=== PATIENT | female | born 1945 | race Caucasian/White ===

== ENCOUNTER → 2017-02-22 14:00 | Outpatient (CLI) | payer MEDICARE, SELFPAY ==
--- NOTE | 2017-02-22 14:00 | ASPS_PTH ---
PATIENT: ELENA GUILLORY LOC: [facility] U#:[id number] AGE/SX: 79/F ROOM: RE02/22/[address]: Dr. Chandler Meyer MD : 1945 BED: DIS: SPEC #: [id number] RECD: 02/23/17 10:05 STATUS: ALEXIS GRISELDA #: [id number] TABITHA: 02/22/17 14:[address]: Chandler Meyer DEPT: CYTOLOGY RECD BY: Brandyn Quinatna ENTERED: 02/23/17 12:40 SP TYPE: ASPIRATION OTHR DR: No Primary Care Phys Tissues: Thyroid gland, NOS Procedures: Pap Stain (control) Special Stain Group II Cytology Other HEADER OPERATION: Ultrasound-guided fine needle aspiration left thyroid PRE-OP DIAGNOSIS: Multinodular goiter E04.2 TISSUE SUBMITTED: Fine needle aspiration left thyroid (12 slides) DIAGNOSIS CYTOLOGY Left thyroid, ultrasound-guided FNA (smears): Consistent with benign follicular nodule. See cytology study and comment. 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 Correlation with clinical, radiologic findings and appropriate follow up are necessary. Please make reference to previous specimen ([id number]) isthmus, ultrasound-guided FNA with diagnosis of consistent with adenomatoid colloid nodule. CYTOLOGY STUDY Slides are reviewed. The specimen is adequate for evaluation. The specimen is cellular and consists of clusters of benign follicular cells without significant atypia, small amount of colloid, lymphocytes and rare macrophages. CYTOLOGY GROSS Received are 12 smears labeled with the patient's name and designated per the requisition as left thyroid FNA. Submitted for staining. / 02/23/17 TC:Renetta CPT: 58447
== END ==
PROVIDERS: Visit Provider Surgery
DX: E04.2 Nontoxic multinodular goiter (principal)
CPT/HCPCS: 88161; 88313

== ENCOUNTER → 2020-02-12 14:21 | Outpatient (CLI) | payer OTHER, SELFPAY ==
[2020-02-12 13:54] VITALS: BMI 20.7
[2020-02-12 16:02] LABS: AST(SGOT) 37 U/L (15-37); Alanine Aminotransfer ALT/SGPT 28 U/L (13-56); Albumin, Serum 4.3 g/dL (3.2-5.0); Alkaline Phosphatase 116 U/L (45-117); Anion Gap 8 (5-15); BUN 7 mg/dL (7-18); Calcium,Total 9.8 mg/dL (8.5-10.1); Chloride 103 mmol/L (98-107); Creatinine, Serum 0.58 mg/dL (0.55-1.02); EST Glomerular Filtration Rate 108 mL/min (>60); Est Glom Filt Rate - Afr Amer 131 mL/min (>60); Globulin 4.1 g/dL (2.2-4.2); Glucose 88 mg/dL (74-106); Potassium 3.6 mmol/L (3.5-5.1); Protein, Total 8.4 g/dL (6.4-8.2); Sodium Level 138 mmol/L (136-145)
== END ==
PROVIDERS: PCP Family Medicine; Referring Provider Family Medicine; Visit Provider Family Medicine
DX: L53.9 Erythematous condition, unspecified (principal)
CPT/HCPCS: 36415; 80053

== ENCOUNTER → 2020-08-18 10:04 | Outpatient (CLI) | payer MEDICARE, SELFPAY ==
[2020-08-18 09:11] VITALS: BMI 20.7
--- NOTE | 2020-08-18 10:22 | RAD_ITS ---
STUDY: X-RAY - SACRUM/COCCYX REASON FOR EXAM: Female, 74 years old. Fall. Pain. TECHNIQUE: 3 view(s) of the sacrum and coccyx were obtained. COMPARISON: None. FINDINGS: Generalized osteopenia. Mild arthrosis of the sacroiliac joints and symphysis pubis. Mild arthrosis of both hips medially, left slightly greater than right. The presacral soft tissue structures are unremarkable. RAD/Sacrum-Coccyx min 2 Views IMPRESSION: Osteopenia with osteoarthritic changes. No acute osseous abnormality. Electronically Signed: Rian Valerio MD at 14:02 EDT , Service support ,
== END ==
PROVIDERS: PCP Family Medicine; Referring Provider Family Medicine; Visit Provider Family Medicine
DX: M53.3 Sacrococcygeal disorders, not elsewhere classified (principal)
CPT/HCPCS: 72220

== ENCOUNTER → 2020-09-05 09:38 | Outpatient (CLI) | payer MEDICARE, SELFPAY ==
[2020-08-18 09:11] VITALS: BMI 20.7
--- NOTE | 2020-09-05 09:39 | CT_ITS ---
STUDY: CT BRAIN WITHOUT CONTRAST REASON FOR EXAM: Female, 75 years old. Fall in JUNE striking both sides of the head, pain on both sides RADIATION DOSAGE (If Supplied By Facility): CTDIvol = ( 44.99 ) mGy, DLP = ( 745.49 ) mGycm TECHNIQUE: Transaxial CT imaging of the brain was performed without administration of intravenous contrast material. Individualized dose optimization techniques were used for this CT. COMPARISON: No relevant priors. FINDINGS: Normal soft tissue structures. Normal calvarium. There is mild cerebral atrophy with widening of the extra-axial spaces and ventricular dilatation. Normal white matter tracts of the cerebral hemispheres. Normal basal ganglia and thalami. Normal brainstem. Normal cerebellum. There is no intracranial hemorrhage. There are no findings of an acute ischemic infarction. Normal visualized paranasal sinuses. CT/Brain/Head without Contrast IMPRESSION: Normal unenhanced CT scan of the brain. Electronically Signed: Abisai Urbina MD ([place]) at 17:58 EDT , Service support ,
== END ==
PROVIDERS: PCP Family Medicine; Referring Provider Family Medicine; Visit Provider Family Medicine
DX: G44.329 Chronic post-traumatic headache, not intractable (principal)
CPT/HCPCS: 70450

== ENCOUNTER → 2020-09-07 10:21 | Outpatient (CLI) | payer MEDICARE, SELFPAY ==
[2020-08-18 09:11] VITALS: BMI 20.7
== END ==
PROVIDERS: Nurse Practitioner Family; PCP Family Medicine; Visit Provider Family Medicine
DX: E03.9 Hypothyroidism, unspecified (principal)
CPT/HCPCS: 36415; 84443

== ENCOUNTER → 2020-09-23 11:47 | Outpatient (CLI) | payer MEDICARE, SELFPAY ==
[2020-09-23 11:49] LABS: Bacteria 0 SEEN /hpf (None Seen); Mucous, Urine 0 SEEN /hpf (<or=2+); Red Blood Cells-Urine 0 SEEN /hpf (0-5); White Blood Cells 0 SEEN /hpf (0-5)
[2020-09-23 15:15] LABS: Absolute Lymphocyte Count 3.17 X10^3/uL (0.83-4.51); Absolute Neutrophil Count 6.2 X10^3/uL (2.0-7.7); Eosinophil# 0.08 X10^3/uL; Eosinophils% 0.8 % (0-5); Lymphocyte # 3.17 X10^3/ul (0.83-4.51); Lymphocyte % 30.9 % (19-41); Mean Corp Hgb Conc 31.1 g/dL (32-36); Mean Corpuscular Hgb 29.4 pg (27.0-32.0); Mean Corpuscular Volume 94.5 fL (81-99); Mean Platelet Vol. 10.1 fl (6.2-12.0); Monocyte% 6.8 % (0-10); NRBC Flagged by Analyzer 0 % (0-5); Neutrophil # 6.19 X10^3/uL (2.7-7.7); Neutrophil % 60.2 % (47-70); Platelet Count 485 K/mm3 (150-450); RBC Distribution Width CV 13.7 % (11.6-14.6); RBC Distribution Width SD 47.6 fl (35.1-43.9); Red Blood Count 4.76 M/mm3 (4.2-5.4); White Blood Count 10.3 K/mm3 (4.4-11.0)
[2020-09-23 15:16] LABS: Color, Urine Yellow (Yellow); Glucose, Dipstick Normal (Normal); Ketone-Dipstick Negative (Negative); Leukocyte Esterase-Dipstick Negative /ul (Negative); Nitrite-Dipstick Negative (Negative); Occult Blood-Urine Negative /ul (Negative); Protein-Dipstick Negative (Negative); Specific Gravity, Urine 1.005 (1.002-1.030); Urine Bilirubin Dipstick Negative (Negative); Urine Clarity Sl. Cloudy (Clear); Urine Urobilinogen Normal (Normal)
[2020-09-23 15:26] LABS: Squamous Epithelial Cells - UA 0-5 SEEN /hpf (5-10)
[2020-09-23 15:27] LABS: ALB/GLOB Ratio 0.6 RATIO (0.9-2.4); AST(SGOT) 37 U/L (15-37); Alanine Aminotransfer ALT/SGPT 30 U/L (13-56); Albumin, Serum 3.6 g/dL (3.2-5.0); Alkaline Phosphatase 126 U/L (45-117); Anion Gap 7 (5-15); BUN 7 mg/dL (7-18); BUN/Creat Ratio 12.6 RATIO (10-20); Calcium,Total 9.7 mg/dL (8.5-10.1); Chloride 103 mmol/L (98-107); Creatinine, Serum 0.55 mg/dL (0.55-1.02); EST Glomerular Filtration Rate 114 mL/min (>60); Est Glom Filt Rate - Afr Amer 138 mL/min (>60); Globulin 5.7 g/dL (2.2-4.2); Glucose 85 mg/dL (74-106); Protein, Total 9.3 g/dL (6.4-8.2); Sodium Level 139 mmol/L (136-145)
== END ==
PROVIDERS: PCP Family Medicine; Visit Provider Family Medicine
DX: J41.1 Mucopurulent chronic bronchitis (principal); R63.4 Abnormal weight loss
CPT/HCPCS: 36415; 80053; 81001; 85025

== ENCOUNTER → 2020-10-09 12:46 | Outpatient (CLI) | payer MEDICARE, SELFPAY ==
--- NOTE | 2020-10-09 12:53 | CT_ITS ---
EXAM: CT CHEST WITH INTRAVENOUS CONTRAST : 1945 CLINICAL INDICATION: unexplained weight loss TECHNIQUE: Helically acquired images were obtained of the chest with intravenous contrast. This CT exam was performed using one or more of the following dose reduction techniques: automated exposure control, adjustment of the mA and/or kV according to patient size, and/or use of iterative reconstruction technique. This report was created using [employer] report generation technology. CONTRAST: IV 100mL Isovue-300 COMPARISON: None. FINDINGS: LUNGS AND PLEURAL SPACES: There is calcified nodule at the right lower lobe. There are diffuse emphysematous changes in both lungs. No pleural effusion or thickening. No pneumothorax. HEART: Unremarkable. Heart size is normal. No pericardial effusion. MEDIASTINUM: Unremarkable. No mediastinal or hilar adenopathy. Esophagus is unremarkable. No hiatal hernia. THYROID: Unremarkable. No thyroid lesions. BONES/JOINTS: Unremarkable. No suspicious lytic or blastic abnormality. VASCULATURE: Unremarkable. Thoracic aorta is non-dilated. No thoracic aortic dissection. No obvious central pulmonary embolism although this study was not performed with the pulmonary embolism protocol. CT/Chest WITH Contrast IMPRESSION: Pulmonary hyperinflation with emphysematous changes in both lungs. There is no acute pulmonary abnormality. Individualized dose optimization techniques were used for this CT. at 1802 Reported and signed by: Gulshan Porter MD Electronically Signed: Gulshan Porter MD at 18:01 EDT Tel , Service support ,
== END ==
PROVIDERS: PCP Family Medicine; Referring Provider Family Medicine; Visit Provider Family Medicine
DX: R63.4 Abnormal weight loss (principal)
CPT/HCPCS: 71260; Q9967

== ENCOUNTER → 2021-01-25 | Outpatient (CLI) | payer MEDICARE, SELFPAY | END | disposition home or self-care (01) | LOC: LABSPEC 10:45 | PROVIDERS: PCP Family Medicine; Visit Provider Physician Assistant | DX: Z11.52 Encounter for screening for COVID-19 (principal) | CPT/HCPCS: 87635; U0005; U0003 ==

== ENCOUNTER → 2021-11-29 | Outpatient (CLI) | payer MEDICARE, SELFPAY ==
[2021-11-29 15:26] LABS: Absolute Lymphocyte Count 3.05 X10^3/uL (0.83-4.51); Absolute Neutrophil Count 4.9 X10^3/uL (2.0-7.7); Basophil# 0.07 X10^3/uL; Basophil% 0.8 % (0-1); Eosinophils% 2.2 % (0-5); Hematocrit 47.7 % (37-47); Hemoglobin 15.4 g/dL (12.0-15.0); Lymphocyte # 3.05 X10^3/ul (0.83-4.51); Lymphocyte % 33.7 % (19-41); Mean Corp Hgb Conc 32.3 g/dL (32-36); Mean Corpuscular Hgb 28.8 pg (27.0-32.0); Mean Corpuscular Volume 89.2 fL (81-99); Mean Platelet Vol. 10.1 fl (6.2-12.0); Monocyte# 0.76 X10^3/uL; Monocyte% 8.4 % (0-10); NRBC Flagged by Analyzer 0 % (0-5); Neutrophil # 4.93 X10^3/uL (2.7-7.7); Neutrophil % 54.6 % (47-70); Platelet Count 288 K/mm3 (150-450); RBC Distribution Width SD 42.2 fl (35.1-43.9); Red Blood Count 5.35 M/mm3 (4.2-5.4)
[2021-11-29 15:41] LABS: AST(SGOT) 27 U/L (15-37); Alanine Aminotransfer ALT/SGPT 22 U/L (13-56); Albumin, Serum 3.9 g/dL (3.2-5.0); Alkaline Phosphatase 93 U/L (45-117); Anion Gap 6 (5-15); BUN 10 mg/dL (7-18); BUN/Creat Ratio 15.8 RATIO (10-20); Calcium,Total 9.4 mg/dL (8.5-10.1); Chloride 104 mmol/L (98-107); Creatinine, Serum 0.63 mg/dL (0.55-1.02); EST Glomerular Filtration Rate 98 mL/min (>60); Est Glom Filt Rate - Afr Amer 118 mL/min (>60); Globulin 3.8 g/dL (2.2-4.2); Glucose 148 mg/dL (74-106); Potassium 3.7 mmol/L (3.5-5.1); Protein, Total 7.7 g/dL (6.4-8.2); Sodium Level 140 mmol/L (136-145)
[2021-11-29 19:53] LABS: Thyroid Stim Hormone (TSH) 0.47 uIU/mL (0.358-3.74)
== END | disposition home or self-care (01) ==
LOC: BIMLAB 13:42
PROVIDERS: PCP Family Medicine; Referring Provider Physician Assistant; Visit Provider Physician Assistant
DX: R63.4 Abnormal weight loss (principal); R03.0 Elevated blood-pressure reading, without diagnosis of hypertension; R00.2 Palpitations
CPT/HCPCS: 36415; 80053; 84443; 85025

== ENCOUNTER → 2022-01-20 | Outpatient (CLI) | payer MEDICARE, SELFPAY ==
--- NOTE | 2022-01-20 09:04 | EKG12_ITS ---
Test Reason : PALPS Blood Pressure : / mmHG Vent. Rate : 090 BPM Atrial Rate : 090 BPM P-R Int : 142 ms QRS Dur : 074 ms QT Int : 384 ms P-R-T Axes : 077 051 066 degrees QTc Int : 469 ms Normal sinus rhythm Septal infarct , age undetermined Abnormal ECG Confirmed by AYLEEN KNOWLES, CINDY ([id number]), book editor FAUZIA COOL ([id number]) on 01/21/2022 10:34:48 AM Referred By: Carly Najera Confirmed By:SWETA ABBASI MD
== END | disposition home or self-care (01) ==
LOC: PSN 09:02
PROVIDERS: PCP Family Medicine; Referring Provider Physician Assistant; Visit Provider Physician Assistant
DX: R03.0 Elevated blood-pressure reading, without diagnosis of hypertension (principal); R00.2 Palpitations
CPT/HCPCS: 93005; 93225; 93226

== ENCOUNTER → 2022-10-13 | Outpatient (CLI) | payer MEDICARE, SELFPAY ==
--- NOTE | 2022-10-13 16:15 | RAD_ITS ---
INDICATION: ANTERIOR RIB PAIN EXAMINATION/TECHNIQUE: X-RAY - XR Ribs Unilateral W/ PA Chest Min 3 Views COMPARISON: None. FINDINGS: SOFT TISSUES: Unremarkable. BONES: No evidence of a fracture. VISUALIZED LUNGS: Emphysematous changes and hyperinflation of the lungs consistent with COPD. No pneumothorax. Right lower lobe calcified granuloma. VISUALIZED MEDIASTINUM: Unremarkable. RAD/Ribs Uni Min 3V w/PA Chest IMPRESSION: No evidence of a left rib abnormality. Electronically Signed: Luis A Kumar DO at 22:39 EDT ,
== END | disposition home or self-care (01) ==
LOC: RAD 16:10
PROVIDERS: PCP Family Medicine; Referring Provider Family Medicine; Visit Provider Family Medicine
DX: R07.81 Pleurodynia (principal)
CPT/HCPCS: 71101

== ENCOUNTER 2023-01-13 15:57 | Outpatient (CLI) | payer MEDICARE, SELFPAY ==
[2023-01-13 16:52] LABS: Absolute Lymphocyte Count 2.27 X10^3/uL (0.83-4.51); Absolute Neutrophil Count 4.7 X10^3/uL (2.0-7.7); Basophil# 0.08 X10^3/uL; Eosinophil# 0.08 X10^3/uL; Hematocrit 47.1 % (37-47); Hemoglobin 15.7 g/dL (12.0-15.0); Lymphocyte # 2.27 X10^3/ul (0.83-4.51); Lymphocyte % 28.7 % (19-41); Mean Corp Hgb Conc 33.3 g/dL (32-36); Mean Corpuscular Hgb 29.6 pg (27.0-32.0); Mean Corpuscular Volume 88.9 fL (81-99); Mean Platelet Vol. 9.4 fl (6.2-12.0); Monocyte% 10.1 % (0-10); NRBC Flagged by Analyzer 0 % (0-5); Neutrophil # 4.67 X10^3/uL (2.7-7.7); Neutrophil % 59.1 % (47-70); Platelet Count 282 K/mm3 (150-450); RBC Distribution Width CV 13.1 % (11.6-14.6); RBC Distribution Width SD 42.3 fl (35.1-43.9); White Blood Count 7.9 K/mm3 (4.4-11.0)
[2023-01-13 17:21] LABS: Vitamin D,25 Hydroxy 30.9 ng/mL
[2023-01-13 17:27] LABS: AST(SGOT) 27 U/L (15-37); Alanine Aminotransfer ALT/SGPT 18 U/L (13-56); Alkaline Phosphatase 89 U/L (45-117); Anion Gap 1 (5-15); BUN 9 mg/dL (7-18); BUN/Creat Ratio 16.8 RATIO (10-20); Calcium,Total 9.8 mg/dL (8.5-10.1); Chloride 106 mmol/L (98-107); Creatinine, Serum 0.54 mg/dL (0.55-1.02); EST Glomerular Filtration Rate 118 mL/min (>60); Est Glom Filt Rate - Afr Amer 142 mL/min (>60); Globulin 4.2 g/dL (2.2-4.2); Glucose 85 mg/dL (74-106); Potassium 3.4 mmol/L (3.5-5.1); Protein, Total 8.2 g/dL (6.4-8.2); Sodium Level 139 mmol/L (136-145); T4 Free Direct 1.36 ng/dL (0.76-1.46); Thyroid Stim Hormone (TSH) 0.98 uIU/mL (0.358-3.74)
== END 2023-01-13 23:59 | disposition home or self-care (01) ==
LOC: BIMLAB 15:58
PROVIDERS: PCP Family Medicine; Referring Provider Physician Assistant; Visit Provider Physician Assistant
DX: E03.9 Hypothyroidism, unspecified (principal); L30.9 Dermatitis, unspecified; E55.9 Vitamin D deficiency, unspecified
CPT/HCPCS: 36415; 80053; 82306; 84439; 84443; 85025

== ENCOUNTER → 2023-04-21 | Outpatient (CLI) | payer MEDICARE, SELFPAY ==
--- NOTE | 2023-04-21 | LES_PTH ---
PATHOLOGY RESULTS PATIENT: ELENA GUILLORY LOC: [facility] U#:[id number] AGE/SX: 77/F ROOM: RE04/21/[address]: Dr. Rohit Mcdonald MD : 1945 BED: DIS: 04/21/2023 SPEC #: [id number] RECD: 04/24/23 10:29 STATUS: ALEXIS REJona #: [id number] TABITHA: 04/21/23 00:[address]: Rohit Mcdonald DEPT: SURGICAL PATHOLOGY RECD BY: Deng Krueger ENTERED: 04/24/23 10:29 SP TYPE: Lesion OTHR DR: Dr. Jae Rice, DO Tissues: Skin of eyelid, NOS Procedures: Surgery Specimen Level IV HEADER OPERATION: Lesion removal of left upper lid PRE-OP DIAGNOSIS: Present multiple x years, slowly increase in size TISSUE SUBMITTED: Left upper lid lesion MICROSCOPIC DIAGNOSIS Left upper eye lid lesion, biopsy; Benign fibroepithelial polyp, mildly inflamed. AM/mr 04/25/2023 MICROSCOPIC DESCRIPTION Slides are reviewed. GROSS DESCRIPTION Received in fixative is one container labeled with the patient's name and designated Left upper lid. The specimen consists of a piece of rascon-brown skin measuring 0.5x 0.4x 0.1cm. Entire specimen submitted into one cassette. DARREN/ 04/24/2023 TC:5 CPT: 18748
--- OUTSIDE RECORDS SUMMARY | 2023-04-21 19:52 | XMS RPT_ITS | CCD ---
Author Name Unknown Address [id number] [place] [address] Organization [facility] Care Team Providers Care Clicking Machine Operator Name Role Phone Kelsi Hernandes Unavailable Craske, W. Don Unavailable Craske, W Douglas Unavailable Unavailable Craske, W Douglas Unavailable Unavailable Craske, W Douglas Unavailable Unavailable Craske, W Douglas Unavailable Unavailable Craske, W Douglas Unavailable Unavailable Craske, W Douglas Unavailable Unavailable Kelsi Hernandes Primary Care Provider Craske, W. Don Unavailable GAIL HANSON Attending Unavailabl e KELSI HERNANDES Primary Care Unavailable Kelsi Hernandes Primary Care Provider [phone] Craskdeyanira, W. Don Unavailable Kelsi Hernandes Unavailable Funmi Cleveland Unavailable Unavailable Sean Rice Unavailable Unavailable Meredith Dixon Unavailable Unavailable Funmi Wallace Unavailable Unavailable Unavailable Unavailable Unavailable Kindra Gill Unavailable Craske III, DO, W. Don Unavailable Craske III, DO, W. Don Unavailable Kindra Gill PA-C Primary Care Provider Newbill, Kindra Unavailable Mami Hung Unavailable Unavailable Paula Villalobos Unavailable Unavailable PRYKHODKO, RICHARD BOBOEYRONNIE Attending U albaroailcharisma PRYKHOSENAO, RICHARD ANDREWSH Referring U albaroailcharisma ANN-MARIESEVERO KINDRA ROBERTO Primary Care Unavailable NEWBILL, KINDRA ROBERTO Primary Care Unavailable NEWCOSTAL, KINDRA ROBERTO Referring Unavailable PRYKHODKO, RICHARD BOBOEYJOSEPHINEH Attending U albaroailable NEWBILL, KINDRA ROBERTO Primary Care Unavailable PRYKHODKO, RICHARD OLEKSEYOVICH Attending U albaroailable Delmy Rice DO Primary Care Provider DELMY RICE Primary Care Unavailable HUMBLE GALLEGOS Referring Unavailable HUMBLE GALLEGOS Attending Unavailable CHANTELL SINGLETON Referring Unavailable HUMBLE GALLEGOS Attending Unavailable DELMY RICE Primary Care Unavailable Allergies Allergy Classification Reported Allergen(s) Allergy Type Date of Onset Reaction(s) Facility (14 sources) Latex; Translations: [LATEX] Propensity to adverse reactions to drug [address] [facility] (8 sources) Sulfonamides (Antibiotic); Translations: [Unknown] Propensity to adverse reactions to drug 9 Other (See Comments) [facility] (4 sources) Sulfonamides (Antibiotic) Propensity to adverse reactions to drug 9 Other (See Comments), [facility] Medications Current Medications Medication Drug Class(es) Dates Sig (Normalized) Sig (Original) bacitracin 0.5 unt/mg topical ointment (2 sources) Start: 07-10-2021 End: 07-16-2021 bacitracin 500 units/g topical ointment ; Apply topically to affected area 3 times a day Quantity: 1 Refills: 0 Ordered: 10-Jul-2021 Mami Hung Start: 10-Jul-2021 End: 16-Jul-2021 Generic Substitution Allowed Comments: For external use only. Completed/Discontinued Medications Medication Drug Class(es) Dates Sig (Normalized) Sig (Original) amLODIPine 5 mg oral tablet (12 sources) Dihydropyridine Calcium Channel Nora Start: 04-26-2021 amLODIPine (NORVASC) 5 mg tablet Take 5 mg by mouth. 0 04/26/2021 Active Problems Active Problems Problem Classification Problem Date Documented Date Episodic/Chronic Abdominal pain (8 sources) Abdominal pain; Translations: [Abdominal pain, unspecified site] Episodic Anxiety disorders (10 sources) Mixed anxiety and depressive disorder; Translations: [Anxiety state, unspecified] Chronic Cardiac dysrhythmias (6 sources) Tachycardia; Translations: [Tachycardia, unspecified] Onset: 11-29-2021 01-18-2022 Episodic Cataract (13 sources) After-cataract with vision obscured following extraction of cataract; Translations: [Other secondary cataract, left eye] Onset: 05-19-2014 Chronic Diverticulosis and diverticulitis (8 sources) Diverticulitis of colon; Translations: [Diverticulitis of colon (without mention of hemorrhage)] Chronic Essential hypertension (9 sources) Benign essential hypertension; Translations: [Benign essential hypertension] Chronic Malaise and fatigue (2 sources) Asthenia; Translations: [Other malaise and fatigue] 08-02-2020 Episodic Nonspecific chest pain (13 sources) Chest pain; Translations: [Atypical chest pain] Onset: 03-01-2019 03-05-2019 Episodic Other eye disorders (2 sources) Vitreous degeneration; Translations: [Vitreous degeneration, unspecified eye] Onset: 05-19-2014 05-19-2014 Chronic Other eye disorders (2 sources) Vitreous opacities; Translations: [Other vitreous opacities, unspecified eye] Onset: 05-19-2014 05-19-2014 Chronic Other nutritional; endocrine; and metabolic disorders (12 sources) Body mass index less than 20; Translations: [Body mass index (BMI) 19.9 or less, adult] Episodic Other screening for suspected conditions (not mental disorders or infectious disease) (5 sources) Electrocardiogram abnormal; Translations: [Nonspecific abnormal electrocardiogram [ECG] [EKG]] Episodic Residual codes; unclassified (3 sources) Tobacco user; Translations: [Tobacco abuse disorder] Onset: 03-01-2019 03-01-2019 Chronic Residual codes; unclassified (12 sources) History finding; Translations: [Other specified conditions influencing health status] Episodic Skin and subcutaneous tissue infections (6 sources) Cellulitis; Translations: [Cellulitis and abscess of unspecified sites] 08-01-2020 Episodic Thyroid disorders (11 sources) Goiter; Translations: [Goiter, unspecified] Onset: 05-28-2010 Chronic Thyroid disorders (12 sources) Disorder of thyroid gland; Translations: [Unspecified disorder of thyroid] Episodic Unclassified (2 sources) JIGGER WHILE GARDENING 08-01-2020 Past or Other Problems Problem Classification Problem Date Documented Da te Episodic/Chronic Allergic reactions (9 sources) Contact hand eczema; Translations: [Contact dermatitis and other eczema, unspecified cause] Onset: 10-15-2008 07-10-2021 Episodic Results Test Name Value Interpretation Reference Range Facil ity Vital Signs Date Time Vital Sign Value Performing Clinician Facility 09-13-2021 11:47-0400 Body height 160.02 cm Funmi Arrieta Obercliftoner Work Phone: [facility] Work Phone: 09-13-2021 11:47-0400 Body mass index (BMI) [Ratio] 20.37 kg/m2 Funmi Arrieta Obercliftoner Work Phone: [facility] Work Phone: 09-13-2021 11:47-0400 Body surface area Derived from formula 1.53 m2 Funmi Meenakshi OberAdReadyer Work Phone: [facility] Work Phone: 09-13-2021 11:47-0400 Body weight 52.16 kg Funmi Arrieta Obercliftoner Work Phone: [facility] Work Phone: 07-13-2021 12:05-0400 Body height 160 cm Kindra Newcostal Other Phone: [facility] 07-13-2021 12:05-0400 Body temperature 97.52 [degF] Kindra Newbill Other Phone: [facility] 07-13-2021 12:05-0400 Diastolic blood pressure 82 mm[Hg] Kindra Newbill Other Phone: [facility] 07-13-2021 12:05-0400 Heart rate 86 /min Kindra Newbill Other Phone: [facility] 07-13-2021 12:05-0400 Respiratory rate 16 /min Kindra Newbill Other Phone: [facility] 07-13-2021 12:05-0400 SaO2% (BldA) [Mass fraction] 96 % Kindra Newbill Other Phone: [facility] 07-13-2021 12:05-0400 Systolic blood pressure 157 mm[Hg] Kindra Newbill Other Phone: [facility] 07-10-2021 21:35-0400 Body height 175.2 cm Kindra Newbill Other Phone: [facility] 07-10-2021 21:35-0400 Body temperature 98.6 [degF] Kindra Newbill Other Phone: [facility] 07-10-2021 21:35-0400 Body weight 49.1 kg Kindra Newbill Other Phone: [facility] 07-10-2021 21:35-0400 Diastolic blood pressure 80 mm[Hg] Kindra Newbill Other Phone: [facility] 07-10-2021 21:35-0400 Heart rate 83 /min Kindra Newbill Other Phone: [facility] 07-10-2021 21:35-0400 Respiratory rate 18 /min Kindra Newbill Other Phone: [facility] 07-10-2021 21:35-0400 SaO2% (BldA) [Mass fraction] 94 % Kindra Newbill Other Phone: [facility] 07-10-2021 21:35-0400 Systolic blood pressure 178 mm[Hg] Kindra Newbill Other Phone: [facility] 07-07-2021 13:14-0400 Body height 160 cm Richard Chinchilla MD Work Phone: [facility] 07-07-2021 13:14-0400 Body mass index (BMI) [Ratio] 20.37 kg/m2 Richard Chinchilla MD Work Phone: [facility] 07-07-2021 13:14-0400 Body weight 52.16 kg Richard Chinchilla MD Work Phone: [facility] 07-07-2021 13:14-0400 Diastolic blood pressure 90 mm[Hg] Richard Chinchilla MD Work Phone: [facility] 07-07-2021 13:14-0400 Heart rate 83 /min Richard Chinchilla MD Work Phone: [facility] 07-07-2021 13:14-0400 SaO2% (BldA) [Mass fraction] 96 % Richard Chinchilla MD Work Phone: [facility] 07-07-2021 13:14-0400 Systolic blood pressure 143 mm[Hg] Richard Chinchilla MD Work Phone: [facility] 05-19-2021 08:58-0400 Body height 160.02 cm Kindrabg Escalante Work Phone: [facility] Work Phone: 05-19-2021 08:58-0400 Body mass index (BMI) [Ratio] 20.27 kg/m2 Kindra M Eachbabycosta Work Phone: [facility] Work Phone: 05-19-2021 08:58-0400 Body surface area Derived from formula 1.53 m2 Kindrabg Escalante Work Phone: [facility] Work Phone: 05-19-2021 08:58-0400 Body weight 51.91 kg Kindra Gill Work Phone: [facility] Work Phone: 05-19-2021 08:58-0400 Diastolic blood pressure 73 mm[Hg] Kindra Gill Work Phone: [facility] Work Phone: 05-19-2021 08:58-0400 Heart rate 116 /min Kindra Gill Work Phone: [facility] Work Phone: 05-19-2021 08:58-0400 Systolic blood pressure 125 mm[Hg] Kindra Gill Work Phone: [facility] Work Phone: 05-06-2021 11:21-0400 Body height 160.02 cm Funmi L Oberhauser Work Phone: [facility] [address] Work Phone: 05-06-2021 11:21-0400 Body mass index (BMI) [Ratio] 19.84 kg/m2 Funmi L Oberhauser Work Phone: [facility] [address] Work Phone: 05-06-2021 11:21-0400 Body surface area Derived from formula 1.51 m2 Funmi L Oberhauser Work Phone: [facility] [address] Work Phone: 05-06-2021 11:21-0400 Body weight 50.8 kg Funmi L Oberhauser Work Phone: XE[facility] Work Phone: 05-06-2021 11:21-0400 Diastolic blood pressure 88 mm[Hg] Funmi L Oberhauser Work Phone: [facility] [address] Work Phone: 05-06-2021 11:21-0400 Heart rate 88 /min Funmi L Oberhauser Work Phone: [facility] [address] Work Phone: 05-06-2021 11:21-0400 SaO2% (BldA) [Mass fraction] 95 % Funmi L Oberhauser Work Phone: OI[facility] Work Phone: 05-06-2021 11:21-0400 Systolic blood pressure 127 mm[Hg] Funmi L Oberhauser Work Phone: WT[facility]of[facility] [address] Work Phone: 04-26-2021 12:31-0400 Body height 160.02 cm Funmi L Oberhauser Work Phone: [facility] Work Phone: 04-26-2021 12:31-0400 Body mass index (BMI) [Ratio] 20.03 kg/m2 Funmi L Oberhauser Work Phone: [facility] Work Phone: 04-26-2021 12:31-0400 Body surface area Derived from formula 1.52 m2 Funmi L Oberhauser Work Phone: [facility] Work Phone: 04-26-2021 12:31-0400 Body weight 51.3 kg Funmi L Oberhauser Work Phone: [facility] Work Phone: 04-26-2021 12:31-0400 Diastolic blood pressure 82 mm[Hg] Funmi L Oberhauser Work Phone: [facility] Work Phone: 04-26-2021 12:31-0400 Heart rate 78 /min Funmi L Oberhauser Work Phone: [facility] Work Phone: 04-26-2021 12:31-0400 SaO2% (BldA) [Mass fraction] 94 % Funmi Mccormickerhauser Work Phone: [facility] Work Phone: 04-26-2021 12:31-0400 Systolic blood pressure 167 mm[Hg] Funmi Arrieta Oberhauser Work Phone: [facility] Work Phone: 04-20-2021 15:51-0400 Body height 160.02 cm Funmi Mccormickerhauser Work Phone: [facility] Work Phone: 04-20-2021 15:51-0400 Body mass index (BMI) [Ratio] 19.86 kg/m2 Funmi Mccormickercliftoner Work Phone: [facility] Work Phone: 04-20-2021 15:51-0400 Body surface area Derived from formula 1.51 m2 Funmi Mccormickercliftoner Work Phone: [facility] Work Phone: 04-20-2021 15:51-0400 Body temperature 97 [degF] Funmi Mccormickercliftoner Work Phone: [facility] Work Phone: 04-20-2021 15:51-0400 Body weight 50.85 kg Funmi L Oberhauser Work Phone: [facility] Work Phone: 04-20-2021 15:51-0400 Diastolic blood pressure 75 mm[Hg] Funmi Meenakshi Oberhauser Work Phone: [facility] Work Phone: 04-20-2021 15:51-0400 Heart rate 88 /min Funmi L Oberhauser Work Phone: [facility] Work Phone: 04-20-2021 15:51-0400 Systolic blood pressure 151 mm[Hg] Funmi L Oberhauser Work Phone: [facility] Work Phone: 03-22-2021 08:53-0500 Body height 160.02 cm Funmi L Oberhauser Work Phone: [facility] Work Phone: 03-22-2021 08:53-0500 Body mass index (BMI) [Ratio] 19.49 kg/m2 Funmi L Oberhauser Work Phone: [facility] Work Phone: 03-22-2021 08:53-0500 Body surface area Derived from formula 1.5 m2 Funmi L Oberhauser Work Phone: [facility] Work Phone: 03-22-2021 08:53-0500 Body temperature 96.9 [degF] Funmi L Oberhauser Work Phone: [facility] Work Phone: 03-22-2021 08:53-0500 Body weight 49.9 kg Funmi L Oberhauser Work Phone: [facility] Work Phone: 03-22-2021 08:53-0500 Diastolic blood pressure 85 mm[Hg] Funmi L Oberhauser Work Phone: [facility] Work Phone: 03-22-2021 08:53-0500 Heart rate 102 /min Funmi L Oberhauser Work Phone: [facility] Work Phone: 03-22-2021 08:53-0500 Systolic blood pressure 134 mm[Hg] Funmi Wallace Work Phone: [facility] Work Phone: 08-02-2020 17:00-0400 Diastolic blood pressure 77 mm[Hg] [facility] 08-02-2020 17:00-0400 Heart rate 74 /min [facility] 08-02-2020 17:00-0400 Respiratory rate 16 /min [facility] 08-02-2020 17:00-0400 SaO2% (BldA) [Mass fraction] 95 % [facility] 08-02-2020 17:00-0400 Systolic blood pressure 136 mm[Hg] [facility] 08-02-2020 13:19-0400 Body height 160 cm [facility] 08-02-2020 13:19-0400 Body temperature 99.68 [degF] [facility] 08-02-2020 13:19-0400 Body weight 50.9 kg [facility] 08-01-2020 14:33-0400 Body height 160 cm Kelsi Hernandes Other Phone: [facility] 08-01-2020 14:33-0400 Body temperature 98.24 [degF] Kelsi Hernandes Other Phone: [facility] 08-01-2020 14:33-0400 Diastolic blood pressure 82 mm[Hg] Kelsi Hernandes Other Phone: [facility] 08-01-2020 14:33-0400 Heart rate 79 /min Kelsi Hernandes Other Phone: [facility] 08-01-2020 14:33-0400 Respiratory rate 16 /min Kelsi Hernandes Other Phone: [facility] 08-01-2020 14:33-0400 SaO2% (BldA) [Mass fraction] 97 % Kelsi Hernandes Other Phone: [facility] 08-01-2020 14:33-0400 Systolic blood pressure 148 mm[Hg] Kelsi Hernandes Other Phone: [facility] 03-05-2019 11:02-0500 BMI (Body Mass Index) 21.43 kg/m2 [facility] 03-05-2019 11:02-0500 Body weight 54.88 kg [facility] 03-05-2019 11:02-0500 BP Diastolic 79 mm[Hg] [facility] 03-05-2019 11:02-0500 BP Systolic 130 mm[Hg] [facility] 03-05-2019 11:02-0500 Height 160 cm [facility] 03-05-2019 11:02-0500 Pulse (Heart Rate) 80 /min [facility] 03-05-2019 11:02-0500 Pulse Oximetry 97 % [facility] 05-29-2017 14:26-0400 BP Diastolic 87 mm[Hg] [facility] 05-29-2017 14:26-0400 BP Systolic 145 mm[Hg] [facility] 05-29-2017 14:26-0400 Pulse (Heart Rate) 83 /min [facility] Encounters Encounter Date Encounter Type Care Provider Facility Start: 02-11-2022 End: 02-11-2022 ambulatory DELMY [facility] Facility:[facility] Start: 02-11-2022 End: 02-11-2022 Patient encounter procedure Humble Gallegos MD Work Phone: Ophthalmology Procedures Date Procedure Procedure Detail Performing Clinician Start: 02-11-2022 Post-cataract laser surgery Humble mcintosh MD Work Phone: Start: 01-18-2022 Post-cataract laser surgery Humble mcintosh MD Work Phone: Start: 01-18-2022 Computerized ophthalmic imaging retina Humble Gallegos MD Work Phone: Start: 05-12-2021 Echocardiography Funmi Wallace Work Phone: Start: 08-02-2020 End: 08-02-2020 EKG impression Mami Hung Start: 03-05-2019 12 lead ECG Gail Hanson Work Phone: Start: 03-22-2017 H/O: surgery History of prior ablation treatment Bonnie Rosa MA Appendectomy Funmi Meenakshi Oberhau ser Work Phone: Hysterectomy Funmi Arrieta Oberhau ser Work Phone: Plan of Treatment Date Care Activity Detail Author Start: 02-06-2022 ADVANCE DIRECTIVE DISCUSSION ADVANCE DIRECTIVE DISCUSSION [facility] Start: 02-06-2022 DEPRESSION ASSESSMENT DEPRESSION ASSESSMENT [facility] Start: 10-07-[address] [facility] Start: 09-20-2021 FUV, Provider: Funmi Wallace, Status: Pen, Time: 1:00 PM FUV, Provider: Funmi Wallace, Status: Pen, Time: 1:00 PM [facility] Work Phone: Start: 07-16-2021 End: 07-16-2021 Patient encounter procedure 07/16/2021 Office Visit Otolaryngology Richard Chinchilla MD [address] [place] [address] [facility] Start: 07-09-2021 End: 07-09-2021 Documentation procedure 07/09/2021 Scanned Document Otolaryngology Richard Chinchilla MD [address] [place] [address] [facility] Start: 07-09-2021 End: 07-09-2021 Patient encounter procedure 07/09/[address] [facility] Start: 05-18-2021 FUV, Provider: Kindra Gill, Status: Pen, Time: 10:30 AM FUV, Provider: Kindra Gill, Status: Pen, Time: 10:30 AM [facility] Work Phone: Start: 05-12-2021 ECHO, Provider: TODD BROOKS ECHO 2,SMCECHO2, Status: Pen, Time: 9:00 AM ECHO, Provider: TODD HHVI ECHO 2,SMCECHO2, Status: Pen, Time: 9:00 AM [facility] Work Phone: Start: 02-06-2021 ADVANCE DIRECTIVE DISCUSSION ADVANCE DIRECTIVE DISCUSSION [facility] Start: 02-06-2021 DEPRESSION ASSESSMENT DEPRESSION ASSESSMENT [facility] Start: 10-08-2019 Influenza vaccination given Sequential Influenza Vaccine (#1) [facility] Start: 04-16-2019 End: 04-16-2019 Office Visit 04/16/2019 Office Visit Cardiology Gail Hanson MD [address] [place] [address] [phone] [facility] Start: 03-18-2019 End: 03-18-2019 Appointment 03/18/2019 Appointment Cardiology Gail Hanson MD [address] [place] [address] [phone] [facility] Start: 03-18-2019 End: 03-18-2019 Appointment 03/18/2019 Appointment Cardiology Gail Hanson MD [address] [place] [address] [phone] [facility] Start: 10-07-2018 Influenza vaccination given SEQUENTIAL INFLUENZA VACCINE (#1) [facility] Start: 05-29-2017 Ambulatory 05/29/2017 Follow-Up Cardiology Fior Correa PA-C [address] [place] [address] [phone] [facility] Start: 10-07-2016 Influenza vaccination SEQUENTIAL INFLUENZA VACCINE (#1) [facility] Start: 08-27-2011 BONE DENSITY BONE DENSITY [facility] Start: 08-27-2011 Fall risk assessment Falls Risk Assessment [facility] Start: 08-27-2011 Pneumococcal vaccination PNEUMOCOCCAL VACCINE AGE 65+ (1 of 2 - PCV13) [facility] Start: 08-27-2011 PNEUMOCOCCAL: 65+ (1 - PCV) PNEUMOCOCCAL: 65+ (1 - PCV) [facility] Start: 2006 Zoster vacc, sc ZOSTER VACCINE [facility] Start: 1996 Administration of herpes zoster vaccine Zoster Vaccines (1 of 2) [facility] Start: 1996 Screening for malignant neoplasm of colon [facility] Start: 1996 SHINGRIX VACCINE (1 of 2) SHINGRIX VACCINE (1 of 2) [facility] Start: 08-27-1991 COLOGUARD (FIT-DNA) COLOGUARD (FIT-DNA) [facility] Start: 08-27-1991 Colonoscopy COLONOSCOPY [facility] Start: 08-27-1991 COLORECTAL CANCER SCREENING COLORECTAL CANCER SCREENING [facility] Start: 08-27-[address] COLONOGRAPHY [facility] Start: 08-27-1991 DIABETES SCREEN DIABETES SCREEN [facility] Start: 08-27-1991 FECAL OCCULT BLOOD FECAL OCCULT BLOOD [facility] Start: 08-27-1991 LIPID SCREEN LIPID SCREEN [facility] Start: 08-27-1991 SIGMOIDOSCOPY SIGMOIDOSCOPY [facility] Start: 1986 Screening for malignant neoplasm of breast Mammogram [facility] Start: 1965 Urine microalbumin profile DTAP,TDAP,TD (1 - Tdap) [facility] Start: 1964 Hepatitis C antibody, confirmatory test Hepatitis C Screening [facility] Start: 1964 Hepatitis C screening Hepatitis C Screening [facility] Start: 1964 HEPATITIS C SCREENING HEPATITIS C SCREENING [facility] Start: 1962 COVID-19 Vaccine (1 of 2) COVID-19 Vaccine (1 of 2) [facility] Start: 1958 Adolescent depression screening assessment Depression Screening (PHQ9) [facility] Start: 1958 Depression screening using PHQ-9 (Patient Health Questionnaire 9) score Depression Screening (PHQ-2/9) [facility] Start: 1952 Pneumococcal Vaccine: Age 65+ (1 - PCV) Pneumococcal Vaccine: Age 65+ (1 - PCV) [facility] Start: 08-27-1951 COVID-19 Vaccine (#1) COVID-19 Vaccine (#1) [facility] Start: 08-27-1951 COVID-19 Vaccine (1) COVID-19 Vaccine (1) [facility] Start: 1949 History and physical examination, annual for health maintenance Wellness Visit [facility] Start: 02-26-1947 COVID-19 VACCINE (#1) COVID-19 VACCINE (#1) [facility] Start: 1946 Fall risk assessment Falls Risk Assessment [facility] Start: 1946 Hepatitis C antibody, confirmatory test HEPATITIS C SCREENING [facility] Start: 1946 Screening for malignant neoplasm of colon Colorectal Cancer Screening: Colonoscopy [facility] Start: 1946 Screening mammography Mammogram [facility] Start: 1946 HEPATITIS C SCREENING HEPATITIS C SCREENING [facility] Start: 1946 Screening colonoscopy COLONOSCOPY [facility] Start: 1946 End: 1946 Screening for osteoporosis DEXA SCAN [facility] Start: 1946 End: [address] [facility] End: 07-07-2022 Fine needle biopsy of thyroid US Thyroid Biopsy With FNA Imaging Routine Thyroid nodule 1 Occurrences starting 07/07/2021 until 07/07/[address] [facility] Work Phone: Payers Date Payer Category Payer Medicare [id number] 2019 Medicare MMO MANAGED MEDI CARE MMO MANAGED MEDICARE O xxxxxxx 2019-Present [id number] 2019 Medicare [id number] 2019 Medicare MMO MANAGED MEDI CARE MMO MANAGED MEDICARE O [id number] 2019-Present [id number] 2019 Medicare [id number] 2017 Private Health Insurance [id number] 2011 Unknown 1946 Unknown [id number] 1946 Unknown [id number] 1946 Unknown [id number] 1946 Unknown [id number] Medicare xxxxxxxxx [id number] Social History Date Type Detail Facility Start: 04-13-2017 End: 05-29-2017 Tobacco smoking status MOIS Current some day smoker [facility] Start: 1945 Sex Assigned At Not on file [facility] Start: 03-05-2019 End: 07-07-2021 Tobacco smoking status MOIS Current every day smoker [facility] Start: 03-05-2019 End: 01-18-2022 Cigarettes smoked current (pack per day) - Reported [facility] Start: 03-05-2019 End: 02-11-2022 Alcohol intake Current non-drinker of alcohol (finding) [facility] Start: 03-05-2019 End: 01-18-2022 Tobacco use and exposure Never used [facility] Tobacco smoking consumption unknown [facility] End: 11-06-2008 History of tobacco use Cigarette Smoker [facility] Start: 06-27-2021 End: 07-07-2021 Exposure to SARS-CoV-2 (event) Not sure [facility] Start: 01-18-2022 [facility] End: 11-06-2008 History of tobacco use Current smoker [facility] Start: 01-18-2022 Tobacco Comment patient report s smoking for 35 years .5ppd - has stopped twice, most recently 01/2008; resumed smoking 08/13 [facility] Clinical Notes 03-15-2021 to 02-11-2022 Patient Maria De Jesus Gallegos MD - 02/11/2022 3:12 PM ESTPatient Maria De Jesus Gallegos MD - 01/18/2022 1:57 PM Arpita Chinchilla MD - 07/07/2021 2:06 PM EDT Note Date & Type Note Facility 02-11-2022 Note HNO ID: [id number] Author: Humble Gallegos MD Service: ? Author Type: Physician Type: Progress Notes Filed: 02/11/2022 4:06 PM Note Text: ASSESSMENT/PLAN: 1. 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 Pseudophakia of both eyes - ICD9: V43.1, ICD10: Z96.1 - YAG CAPSULOTOMY OD (RIGHT EYE) S/p Yag laser left eye 01/18/2022 Begin: Acular 1 drop in the right eye four times daily for one week then discontinue Patient to see Dr. Fox in [place] for refraction and new glasses following YAG Laser both eyes. Humble Gallegos MD I have confirmed and edited as necessary the relevant ophthalmic history, review of systems, surgical history, and ophthalmological examination findings as obtained by the ophthalmic technical staff. I have seen and examined Jocelyne Chapman. I have discussed the examination findings, diagnosis, and treatment options with Jocelyne Chapman and/or her family. I have also reviewed and agree with the assessment and plan as stated above and agree with all its relevant components. I gave the patient the opportunity to ask questions about the findings, diagnosis, and treatment options. [facility] 02-11-2022 Instructions Humble Gallegos MD - 02/11/2022 3:14 PM EST YAG LASER POSTERIOR CAPSULOTOMY WHY IS MY VISION WORSE NOW THAN IT WAS RIGHT AFTER MY CATARACT SURGERY? During cataract surgery, Dr Gallegos removes the cloudy lens from the eye. At that time he also removes the front part of a membranous capsule that holds your natural lens. The back part of this capsule (posterior capsule) is left intact and hold the new lens implant in place. In some people this thin posterior capsule gets cloudy and causes a decrease in vision some weeks, months or even years after cataract surgery. CAN MY DOCTOR HELP MY VISION? In order to improve vision, a very small opening must be made in the cloudy posterior capsule. This opening now allows a clearer channel for light to focus on your retina. Your vision will improve to the degree that the cloudy capsule was interfering with clear vision. You may or may not see an immediate improvement in your vision, but it should continue to improve in the days and weeks following the laser procedure. HOW DOES THE LASER WORK? Lasers are the instruments that emit a narrow, finely focused beam of light energy. Some lasers work by heating and coagulating tissue; however, the YAG laser does not heat, but rather cuts tissue inside the eye. Ophthalmologists have used these lasers since the early 1969's, and they have been proven extremely safe and effective. SHOULD I HAVE ANY SPECIAL TESTING OR TAKE ANY PRECAUTIONS PRIOR TO THE LASER TREATMENT? If you are taking eye medication on a regular basis, you should continue as normal unless Dr. Gallegos specifically tells you others. The Yag laser posterior capsulotomy is accomplished quickly, with little or no discomfort, no special testing, no hospitalization, no fasting, no shots, no stitches, and no activity restrictions. HOW LONG WILL THE LASER TREATMENT TAKE? Although the laser treatment itself only takes about 15 minutes, you should plan to be in the office for 1-2 hours. Dilating drops will be administered 1 hour prior to the treatment. An additional benefit of these drops is to reduce the chances of a spike in intraocular eye pressure (pressure inside the eye) after the laser procedure. During the time before your procedure, Dr Gallegos will check your pre-laser eye pressure and answer any questions you may have concerning the procedure. After the treatment is completed, other eye drops may be administered and you pressure will be checked again to be sure all is well before you leave. WHAT HAPPENS DURING THE LASER TREATMENT? You will be asked to sit in front of an instrument that looks similar to the slit lamp in the exam room. Dr. Gallegos will place a special contact lens over your eye to help see inside your eye so he can aim accurately. This lens also help keep you eye open and prevents small eye movements. You will see flashes of light, like a camera flash, and hear the clicking sound of the laser. DOES THE LASER HURT? Dr Gallegos or his financial services assistant will administer anesthetic drops into your eye. There is minimal, if any, discomfort. Most people feel no pain at all, but in rare cases, some patient reported a pinching-like sensation in the eye. WHAT CAN I EXPECT WHEN THE LASER PROCEDURE IS FINISHED? You will not need to patch you eye post YAG laser. You will be dilated so you will need to bring someone to drive you home. It is normal to have some mild inflammation in your eye which can laser a matter of days. Therefore, your eye might feel scratchy or like there is something in it. It may be slightly red and light sensitive. Occasionally, your eye may ache. If needed, you may use an over the counter pain reliever until the pain subsides. Please let your doctor know if you cannot tolerate these types of medications. FOLLOW UP AFTER THE LASER? After your Yag laser procedure, you will be asked to return in a few months to check your vision, eye pressure, and the karan of your retina. After the laser treatment, you may experience small floating objects in your field of vision. These are a common occurrence after a Yag laser posterior capsulotomy and should subside within a few months. Of course, should you experience any decrease in vision or pain in or around the eyes, please call our office immediately. documented in this encounter [facility] 02-11-2022 History of Present illness Narrative ASSESSMENT/PLAN: 1. 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 Pseudophakia of both eyes - ICD9: V43.1, ICD10: Z96.1 - YAG CAPSULOTOMY OD (RIGHT EYE) S/p Yag laser left eye 01/18/2022 Begin: Acular 1 drop in the right eye four times daily for one week then discontinue Patient to see Dr. Fox in [place] for refraction and new glasses following YAG Laser both eyes. Humble Gallegos MD I have confirmed and edited as necessary the relevant ophthalmic history, review of systems, surgical history, and ophthalmological examination findings as obtained by the ophthalmic technical staff. I have seen and examined Jocelyneshraddha Chapman. I have discussed the examination findings, diagnosis, and treatment options with Jocelyne Chapman and/or her family. I have also reviewed and agree with the assessment and plan as stated above and agree with all its relevant components. I gave the patient the opportunity to ask questions about the findings, diagnosis, and treatment options. documented in this encounter [facility] 01-18-2022 Note HNO ID: [id number] Author: Humble Gallegos MD Service: ? Author Type: Physician Type: Progress Notes Filed: 01/18/2022 1:59 PM Note Text: ASSESSMENT/PLAN: 1. After-cataract obscuring vision, left - ICD9: 366.53, ICD10: H26.492 (primary diagnosis) -Yag laser posterior capsulotomy left eye today. - YAG CAPSULOTOMY OS (LEFT EYE) 2. 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 Pseudophakia of both eyes - ICD9: V43.1, ICD10: Z96.1 I have confirmed and edited as necessary the relevant ophthalmic history, review of systems, surgical history, and ophthalmological examination findings as obtained by the ophthalmic technical staff. I have seen and examined Jocelyne Chapman. I have discussed the examination findings, diagnosis, and treatment options with Jocelyne Chapman and/or her family. I have also reviewed and agree with the assessment and plan as stated above and agree with all its relevant components. I gave the patient the opportunity to ask questions about the findings, diagnosis, and treatment options.' Humble Gallegos MD [facility] 01-18-2022 Instructions Humble Gallegos MD - 01/18/2022 1:58 PM EST Current Ophthalmic Meds keTORolac (ACULAR) 0.5 % ophthalmic solution Use 1 Drop in the left eye four times daily for 7 days. If you have any questions please contact our office at [phone]. After office hours or on the weekend, please call Dr. Gallegos on his cell phone at [phone]. documented in this encounter [facility] 01-18-2022 History of Present illness Narrative ASSESSMENT/PLAN: 1. After-cataract obscuring vision, left - ICD9: 366.53, ICD10: H26.492 (primary diagnosis) -Yag laser posterior capsulotomy left eye today. - YAG CAPSULOTOMY OS (LEFT EYE) 2. 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 Pseudophakia of both eyes - ICD9: V43.1, ICD10: Z96.1 I have confirmed and edited as necessary the relevant ophthalmic history, review of systems, surgical history, and ophthalmological examination findings as obtained by the ophthalmic technical staff. I have seen and examined Jocelyne Chapman. I have discussed the examination findings, diagnosis, and treatment options with Jocelyne Chapman and/or her family. I have also reviewed and agree with the assessment and plan as stated above and agree with all its relevant components. I gave the patient the opportunity to ask questions about the findings, diagnosis, and treatment options.' Humble Gallegos MD documented in this encounter [facility] 07-07-2021 History of Present illness Narrative Subjective: Patient ID: Jocelyne Chapman is a 75 y.o. female. Chief Complaint Patient presents with New Patient Thyroid nodule HPI kind referral for my evaluation due to abnormal imaging findings. Reportedly, patient had CT chest for status post accidental fall with incidental finding of thyroid gland nodules this was followed with thyroid ultrasound describing fairly large left thyroid nodule, which meets criteria for biopsy. Unfortunately, no images are available for my review but impression. Patient denies localized to the area pain, difficulty swallowing or breathing, voice changes, cough, hemoptysis, weight loss or other constitutional symptoms he is not aware of any family history of lymphoma, thyroid cancer or low-dose radiation exposure. Patient does not demonstrate signs of thyroid dysfunction. The following portions of the patient's history were reviewed and updated as appropriate: allergies, current medications, past family history, past medical history, past social history, past surgical history and problem list. Review of Systems Constitutional: Positive for activity change and fatigue. Negative for appetite change, chills, diaphoresis, fever and unexpected weight change. HENT: Positive for trouble swallowing and voice change. Negative for congestion, dental problem, drooling, ear discharge, ear pain, facial swelling, hearing loss, mouth sores, nosebleeds, postnasal drip, rhinorrhea, sinus pressure, sneezing, sore throat and tinnitus. Eyes: Negative for pain and visual disturbance. Respiratory: Positive for choking. Negative for apnea, cough, chest tightness, shortness of breath, wheezing and stridor. Cardiovascular: Negative for chest pain. Gastrointestinal: Negative for abdominal distention. Endocrine: Negative for cold intolerance and heat intolerance. Allergic/Immunologic: Negative for environmental allergies, food allergies and immunocompromised state. Neurological: Negative for dizziness, facial asymmetry and headaches. Hematological: Negative for adenopathy. Psychiatric/Behavioral: Negative for behavioral problems. Objective: BP (!) 143/90 (BP Location: Left arm, Patient Position: Sitting, BP Cuff Size: Adult) Pulse 83 Ht 5' 3 Wt 52.2 kg (115 lb) SpO2 96% BMI 20.37 kg/m Physical Exam Constitutional: General: She is not in acute distress. Appearance: She is well-developed. She is not diaphoretic. HENT: Head: Normocephalic and atraumatic. Right Ear: External ear normal. Left Ear: External ear normal. Nose: Nose normal. Mouth/Throat: Pharynx: No oropharyngeal exudate. Eyes: General: No scleral icterus. Pupils: Pupils are equal, round, and reactive to light. Neck: Thyroid: Thyroid mass and thyromegaly present. Vascular: No JVD. Trachea: Trachea normal. No tracheal deviation. Cardiovascular: Rate and Rhythm: Normal rate and regular rhythm. Heart sounds: No murmur heard. No friction rub. No gallop. Pulmonary: Effort: Pulmonary effort is normal. Breath sounds: Normal breath sounds. No stridor. Abdominal: General: Bowel sounds are normal. Palpations: Abdomen is soft. Musculoskeletal: Cervical back: Normal range of motion and neck supple. Lymphadenopathy: Cervical: No cervical adenopathy. Right cervical: No superficial, deep or posterior cervical adenopathy. Left cervical: No superficial, deep or posterior cervical adenopathy. Assessment/Plan: Impression on CT chest and thyroid ultrasound from [facility] documented large approximately 3.6 cm left thyroid lobe nodule, which meets criteria for biopsy. Ultrasound-guided FNA was arranged. Further management will be discussed based on the results of the biopsy. Patient had expressed comprehensive understanding was in agreement with suggested plan. Informal consent was signed and witnessed. Procedure will be scheduled in the near future 1. Multinodular goiter (nontoxic) 2. Thyroid nodule Ambulatory referral to ENT US Thyroid Biopsy With FNA Orders Placed This Encounter Procedures US Thyroid Biopsy With FNA Portions of this chart were created using [employer] voice recognition software. Occasional wrong-word or sound-like substitutions may have occurred due to inherent limitations of the voice recognition software. Please read the chart carefully and recognize, using context, where the substitutions have occurred. documented in this encounter [facility] 04-27-2021 History of Present illness Narrative 75 year-old female with a medical history of hypertension, hypothyroidism, here to establish care regarding following conditions:Problem #1 abnormal EKG-EKG from 04/27/2021 notes normal sinus rhythm. Suspicion for left atrial enlargement; but does not meet criteria in my opinion.Problem #2 chest discomfort-Patient describes chest discomfort under her left breast that has been present for about a year. It is reproducible on palpation; can last for hours in duration; is not clearly exertional. Does not change respiration; but does change with position. [id number] [address] Work Phone: 04-20-2021 History of Present illness Narrative Patient presents today in follow-up of blood pressure. Patient brought in a log and average was 150/98 for the past 6 days.X-ray obtained from previous visit showed possible new spiculated lung nodule in the right upper lobe. CT was recommended for further evaluation. -[facility] Work Phone: 04-20-2021 History of Present illness Narrative Patient is here today for follow upPatient was seen by Kindra on 04/20/21 for anxiety and depression. This was during the 1 year anniversary of her husbands .Pt had been also having some increasing blood pressure readings and some chest pain symptoms.She had an EKG and CXR. CXR was abnormal and showed a possibly spiculated lung nodule in the right upper lobe, Ct of the chest was completed which showed stable perifussural nodularity in the costa lungs consistent with benign intraparenchymyal lymph nodes, recommend repeat follow up in 12 mo. Enlarged left thyroid lobe, emphysematous changes .Pt saw ENT and had bx completed of the enlarged nodule.I do not see that we received report of the bx.She did see Cardiology as well and had an echo that was ok. [facility] Work Phone: 03-15-2021 History of Present illness Narrative Patient is here today to establish care, she is a 75 y.o. female who is here with a cc of stomach issues.Patient reports that over the last week she has had a lot of stomach trouble, belching and gas, not a lot of abd pain, normal bowel movements, nausea, no vomiting, NO sick contacts, no eating out recently. No heart burn. No history of stomach issues.She tried pepto bismol, tums, and [place] whichc did not help much.She has no significant past medical history.Takes no medications 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 Patient reports intermittent bouts of costa ateral chest pressure, facial flushing, without focal left-sided chest pain, shortness of breath, dyspnea, or other constitutional signs or symptoms. Patient's only real medical history is hypothyroidism. Recent lab work including CBC, CMP, and TSH were unremarkable. Patient's blood pressure on intake was 150/75. * With further discussion, patient's of 57 years approximately 1 year ago.... Anniversary of which is upcoming. Also, the marital anniversary is in the same timeframe. Patient admits to having to be the anchor of the family and has not grieved the loss. Patient feels that is not her place to feel the pain or grieve the loss. The recent past, patient has been experiencing crying spells,profound sadness, forgetfulness, and lack of motivation. [facility] Work Phone: History of Present illness Narrative* The patient is being seen for the initial annual wellness visit. * Medications and Supplements: Review of all medications by a prescribing practitioner or clinical pharmacist (such as prescriptions, OTCs, herbal therapies and supplements) documented in the medical record. * No, the patient is not using opioids. * Patient Self Assessment of Health Status: excellent. * Tobacco use: User * Alcohol use: Non-User * Illicit drug use: Non-User * Current diet: well balanced diet. * Exercise Frequency: the patient does not exercise. * Depression/Suicide Screening: Patient has a current diagnosis of depression . * During the past 2 weeks, the patient felt down, depressed or hopeless. * During the past 2 weeks, the patient has not felt little interest or pleasure in doing things. * Hearing Impairment: Patient has slight hearing impairment. * Cognitive Impairment: No cognitive impairment observed. * Bathing: performs independently. * Dressing: performs independently. * Walking: performs independently. * Toileting: performs independently. * Feeding: performs independently. * Personal Hygiene: performs independently. * Bowels: continent. * Bladder: continent. * Managing Finances: performs independently. * Shopping: performs independently. * Managing Medications: performs independently. * Housework / Basic Home Maintenance: performs independently. * Handling Transportation: performs independently. * Preparing Meals: performs independently. * Using the Telephone/ Communication Devices: performs independently. * Falls Risk Screening:. JOCELYNE has not fallen in the last 6 months. Her fall did not result in injury. * Home safety risk factors: none. * Patient presents in follow-up of depression and anxiety treatment. Patient arbitrarily stopped the sertraline due to sedative effects. Patient prefers not to feel this way. Patient reports significant stressors revolving around dealing with of her spouse and family members. Patient declined any help or counseling for this today. * CT obtained due to abnormal chest x-ray revealed stable appearing nodularities and benign intraparenchymal lymph nodes without suspicious pulmonary nodules. There was an incidental noting of asymmetric heterogeneous markedly enlarged left thyroid lobe. When asked about this, patient denies any prior evaluation of this but CT report mentions better evaluation on previous thyroid ultrasound. This is not in our chart. * Patient is complaining of elevated heart rate at home. Patient reports heart rate as high as 144 atrest. On intake today, patient was 116 with amlodipine on board. Patient denies any new chest pain or shortness of breath. Since cardiac work-up including echo was unremarkable though, patient was tac hycardic for the echo. [facility] Work Phone: Instructions* Attachments The following attachments cannot be sent through Care Everywhere. * Thyroid: Biopsy: Fine-Needle: Pre-op (Latvian) [facility] Diagnosis Varicose veins of left lower extremity with pain - Primary Diagnosis Chest pain, unspecified type Tobacco abuse disorder Atypical chest pain Other chest pain Abnormal EKG Nonspecific abnormal electrocardiogram (ECG) (EKG) Summary Purpose Family History No Family History Records FoundUnknown Family Member Name Dates Details No pertinent family history: Other(V49.89, Z78.9) Status:Active DM II (diabetes mellitus, ty pe II), controlled: Mother, Sister Status:Active : Father Comments: due to wor k accident at 58; Status:Active Unknown Family Member Name Dates Details No pertinent family history: Other(V49.89, Z78.9) Status:Active DM II (diabetes mellitus, ty pe II), controlled: Mother, Sister Status:Active : Father Comments: due to wor k accident at 57; Status:Active Unknown Family Member Name Dates Details No pertinent family history: Other(V49.89, Z78.9) Status:Active DM II (diabetes mellitus, ty pe II), controlled: Mother, Sister Status:Active : Father Comments: due to wor k accident at 57; Status:Active Unknown Family Member Name Dates Details No pertinent family history: Other(V49.89, Z78.9) Status:Active DM II (diabetes mellitus, ty pe II), controlled: Mother, Sister Status:Active : Father Comments: due to wor k accident at 57; Status:Active Unknown Family Member Name Dates Details No pertinent family history: Other(V49.89, Z78.9) Status:Active DM II (diabetes mellitus, ty pe II), controlled: Mother, Sister Status:Active : Father Comments: due to wor k accident at 57; Status:Active Unknown Family Member Name Dates Details No pertinent family history: Other(V49.89, Z78.9) Status:Active DM II (diabetes mellitus, ty pe II), controlled: Mother, Sister Status:Active : Father Comments: due to wor k accident at 57; Status:Active Unknown Family Member Name Dates Details No pertinent family history: Other(V49.89, Z78.9) Status:Active DM II (diabetes mellitus, ty pe II), controlled: Mother, Sister Status:Active : Father Comments: due to wor k accident at 57; Status:Active Unknown Family Member Name Dates Details No pertinent family history: Other(V49.89, Z78.9) Status:Active DM II (diabetes mellitus, ty pe II), controlled: Mother, Sister Status:Active : Father Comments: due to wor k accident at 57; Status:Active Unknown Family Member Name Dates Details No pertinent family history: Other(V49.89, Z78.9) Status:Active DM II (diabetes mellitus, ty pe II), controlled: Mother, Sister Status:Active : Father Comments: due to wor k accident at 57; Status:Active Unknown Family Member Name Dates Details No pertinent family history: Other(V49.89, Z78.9) Status:Active DM II (diabetes mellitus, ty pe II), controlled: Mother, Sister Status:Active : Father Comments: due to wor k accident at 57; Status:Active Unknown Family Member Name Dates Details No pertinent family history: Other(V49.89, Z78.9) Status:Active DM II (diabetes mellitus, ty pe II), controlled: Mother, Sister Status:Active : Father Comments: due to wor k accident at 57; Status:Active Unknown Family Member Name Dates Details No pertinent family history: Other(V49.89, Z78.9) Status:Active DM II (diabetes mellitus, ty pe II), controlled: Mother, Sister Status:Active : Father Comments: due to wor k accident at 57; Status:Active Advance Directives No Advanced Directives Records FoundDocuments on File Type Date Recorded Patient Kier Boiler Expl anation Advance Directives and Living Will Documents on File Type Date Recorded Patient Kier Boiler Expl anation Advance Directives and Living Will Reason for Referral Status Reason Specialty Diagnoses / Procedures Referred By Contact Referred To Contact Authorized Radiology Diagnoses Chest pain, unspecified type Abnormal EKG Procedures NM Myocardial Perfusion Multiple SPECT Gail Hanson MD [address] [place] [address] Specialty Diagnoses / Procedures Referred By Contac t Referred To Contact Otolaryngology Diagnoses Thyroid nodule Kindra Gill PA-C [address] [place] [address] Richard Chinchilla MD [address] [phone] Referral ID Status Reason Start Date Expiration Date V isits Requested Visits Authorized [id number] Authorized 06/10/2021 06/10/2022 1 1 Specialty Diagnoses / Procedures Referred By Contac t Referred To Contact Radiology Diagnoses Thyroid nodule Procedures US Thyroid Biopsy With FNA Richard Chinchilla MD [address] [address] Referral ID Status Reason Start Date Expiration Date V isits Requested Visits Authorized [id number] Authorized 07/07/2021 07/07/2022 1 1 Instructions * Patient Instructions* Pat Galeano RN - 03/05/2019 11:00 AM EST Provider: Dr. Gail Hanson Nurse: NAOMI Wang, RN NUCLEAR MEDICINE CARDIAC STRESS TEST THIS IS A 3-4 HOUR TEST Instructions: Appointment Time: , ____/____/____ at ____:____ Prep: DO NOT Take your morning medications. Please bring your morning medications with you. NO CAFFEINE FOR 24 HOURS prior to your test. This includes drinks labeled decaffeinated. Nothing to eat 4 hours prior to your test. A small snack will be provided (crackers, granola bar, juice), or you may bring your own snack for after your stress test. You may drink fluids leading up to your test as long as they are caffeine-free. Decaffeinated drinks still contain some caffeine, please do not drink anything containing caffeine for 24 hours. NO SMOKING the day of your test. Wear comfortable shoes and clothing for exercising. Please wear short sleeves. No metal buttons or snaps. Procedure: Check-in/Registration. Please bring photo ID, insurance cards, and any physician orders. Test explained in detail and IV started. Stress test performed, nuclear medicine will be injected through your IV during the stress test. Stress test recovery period. Heart scan performed. The doctor will review the pictures of your heart and decide if more pictures are needed before youleave. If more are needed you will get another injection of nuclear medicine and this will take an additional hour. The total time for this test is 3-4 hours. There are medications that interfere with this test. You may be instructed to hold medications. If so that will be listed here: If you have any further questions please contact your care team or [phone]. documented in this encounter History of Present Illness * Gail Hanson MD - 03/05/2019 11:00 AM EST OFFICE CONSULTATION NOTE [facility] [address]) [facility] [address] [facility] [id number] Physicians: Kelsi Hernandes DO (Family); Kelsi Hernandes DO (Referring) Subjective: Jocelyne Chapman is a 73 y.o. female seen in the office today for Consult (atypical chest pain) She is here for evaluation and management of chest discomfort. She has smoked for over 50 years. She states she used to smoke a full pack a day and now she is down to half a pack. She states that shewas having cataract surgery and she was trying to beverley and was very frustrated and suffered leftsided chest discomfort was a sharp character radiated up to her neck. It went away on its own and she has not had any since then she is however fairly sedentary. She does use a push mower in the summer without symptoms of chest discomfort. She denies shortness of breath edema lightheadedness dizziness syncope. She feels she is in good health. Assessment & Plan: Chest pain She had an isolated episode of nonexertional chest discomfort although she was under emotional stress. She has smoked for 50 years and as I explained to her that is her main risk factor. Her EKG today is also troubling and that there is ST segment depression across the precordium and inferiorly. Noold ones for comparison. Given risk factors and the isolated event with abnormal EKG we will proceed with a stress nuclear perfusion study. She is already on a baby aspirin I added statin and beta-nora. If the stress study is abnormal at all we would proceed to heart catheterization. Orders placed this encounter: Orders Placed This Encounter Procedures NM Myocardial Perfusion Multiple SPECT Standing Status: Future Standing Expiration Date: 03/05/2020 Scheduling Instructions: Do Not Schedule more than one Nuc Med procedure for a patient per day!!!! (Contact Nuc Med for exceptions) If it is after 12:00pm and procedure is for tomorrow, contact Nuclear Medicine for approval to schedule the procedure. Fax Order/Script to: [phone] for Central Scheduling scripts [phone] for [facility] Scheduling scripts DO NOT USE R/O A DIAGNOSIS Order Specific Question: What type of stressing agent do you want to be used? Answer: Exercise / Treadmill ECG 12 Lead Follow Up Ordered: Return in about 6 weeks (around 04/16/2019). Patient's Medications New Prescriptions ATORVASTATIN (LIPITOR) 20 MG TABLET Take 1 (one) tablet (20 mg total) by mouth daily . METOPROLOL SUCCINATE (TOPROL-XL) 25 MG 24 HR TABLET Take 1 (one) tablet (25 mg total) by mouth daily . Previous Medications ASPIRIN 81 MG EC TABLET Take 81 mg by mouth daily . ISOSORBIDE MONONITRATE (IMDUR) 30 MG 24 HR TABLET Take 30 mg by mouth daily . LEVOTHYROXINE (SYNTHROID, LEVOTHROID) 50 MCG TABLET Take 50 mcg by mouth once daily . THERAPEUTIC MULTIVITAMIN (THERAGRAN) TABLET Take 1 tablet by mouth daily . Modified Medications No medications on file Discontinued Medications No medications on file Histories: Past Medical History: Diagnosis Date Disease of thyroid gland hypothyroidism Varicose vein of leg lt leg Past Surgical History: Procedure Laterality Date APPENDECTOMY 1969' EXCISION VARICOSE VEINS LT CALF W/LIGATION OF BREAKDOWN PERSON VEIN Left 05/16/2017 HYSTERECTOMY 1969' VARICOSE VEIN INJECTION Left 2017 LT LEG - DR KELLEY VEIN SURGERY Left 2017 Dr Kelley - ablation Family History Problem Relation Age of Onset Varicose veins Mother Social History Tobacco Use Smoking status: Current Every Day Smoker Packs/day: 0.50 Years: 53.00 Pack years: 26.50 Smokeless tobacco: Never Used Substance Use Topics Alcohol use: No Drug use: No Allergies Allergen Reactions Sulfa (Sulfonamide Antibiotics) Other (See Comments) boils Latex Rash Review of Systems All other systems reviewed and are negative. Overview of Problems Addressed: Problem Chest Pain Objective: Vitals: BP 130/79 (BP Location: Left arm, Patient Position: Sitting) Pulse 80 Ht 5' 3 Wt 54.9 kg (121 lb) SpO2 97% BMI 21.43 kg/m Physical Exam Constitutional: She is oriented to person, place, and time. She appears well- developed and well-nourished. HENT: Head: Normocephalic. Eyes: Conjunctivae are normal. No scleral icterus. Neck: Neck supple. No JVD present. Carotid bruit is not present. No thyromegaly present. Cardiovascular: Normal rate, regular rhythm, S1 normal, S2 normal and normal heart sounds. PMI is not displaced. Exam reveals no gallop and no friction rub. No murmur heard. No carotid bruits Pulmonary/Chest: She has no wheezes. She has rhonchi. She has rales. Abdominal: Soft. She exhibits no abdominal bruit. . Musculoskeletal: Normal range of motion. General: Edema present. Neurological: She is alert and oriented to person, place, and time. Skin: Skin is warm and dry. No cyanosis. Nails show no clubbing. Psychiatric: She has a normal mood and affect. Her behavior is normal. Nursing note and vitals reviewed. 1. Abnormal EKG 2. Chest pain, unspecified type 3. Tobacco abuse disorder 4. 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 Patient states next month will be the anniversary of her husbands and she has been having difficulty coping. Patient states her symptoms have been progressing since his . She is noticing crying spells, concentration problems, forgetfulness and increased BP's. Patient also mentions noticing small knots under her breast (bilat)when she gets upset but clears when calmed down.* Patient here today to be seen for increased BP readings. * Patient states they have been running 127/85 to 168/110. Patient states she started her BP long on 04-21-21. * Patient offers no complaints. Abnormal EKGPatient here today for her annual Medicare wellness check. Patient stopped taking her Sertraline 25mg tablet 1 week ago due to the dislike of they way it made her feel. States she had poor judgment while on this medication along with little to no emotion. Patient states she has had an increase in heart rate and cannot exert herself without her HR elevating. Serves no further health concerns.* +PT VERY HARD OF HEARING * 76 y/o female presents to discuss her thyroid * Pt said the only reason she is her is to go over scans she had done on her Thyroid Medications Administered Section Active Administered Medications - up to 3 most recent administrations Medication Order MAR Action Action Date Dose Rate Site fluorescein-benoxinate 0.25-0.4 % 1 Drop (FLURESS) 1 Drop, BOTH EYES, DIRECTED, Starting on Mon01/18/22 at 1330, Until Mon01/19/22 at 0129, Administer for applanation tonometry. In the event of a Fluress shortage, administer Lucia-Fluor 1 drop into both eyes as directed for applanation tonometry Given 01/18/2022 1:24 PM EST 1 Drop PHENYLephrine 2.5 % 1 Drop (AK-DILATE, RUTH-SYNEPHRINE) 1 Drop, BOTH EYES, DIRECTED, Starting on Mon01/18/22 at 1330, Until Mon01/19/22 at 0129, Administer for dilation PROTECT FROM LIGHT Given 01/18/2022 1:24 PM EST 1 Drop proparacaine 0.5 % 1 Drop (ALCAINE) 1 Drop, BOTH EYES, DIRECTED, Starting on Mon01/18/22 at 1330, Until Mon01/19/22 at 0129, Administer for pneumo tonometry, tonopen tonometry, or pachymetry. In the event of a proparacaine shortage, administer tetracaine 0.5% ophthalmic drops 1 drop in the left eye as directed for pneumo tonometry, tonopen tonometry, or pachymetry Given 01/18/2022 1:24 PM EST 1 Drop tropicamide 1 % 1 Drop (MYDRIACYL) 1 Drop, BOTH EYES, DIRECTED, Starting on Mon01/18/22 at 1330, Until Mon01/19/22 at 0129, Administer for dilation Given 01/18/2022 1:24 PM EST 1 Drop Inactive Administered Medications - up to 3 most recent administrations Medication Order MAR Action Action Date Dose Rate Site PHENYLephrine 2.5 % 1 Drop (AK-DILATE, RUTH-SYNEPHRINE) 1 Drop, RIGHT EYE, DIRECTED, Starting on Mon02/11/22 at 1530, Until 02/12/22 at 0329, Administer for dilation PROTECT FROM LIGHT Given 02/11/2022 3:30 PM EST 1 Drop proparacaine 0.5 % 1 Drop (ALCAINE) 1 Drop, RIGHT EYE, DIRECTED, Starting on Mon02/11/22 at 1530, Until 02/12/22 at 0329, Administer for pneumo tonometry, tonopen tonometry, or pachymetry. In the event of a proparacaine shortage, administer tetracaine 0.5% ophthalmic drops 1 drop in the right eye as directed for pneumo tonometry, tonopen tonometry, or pachymetry Given 02/11/2022 3:30 PM EST 1 Drop tropicamide 1 % 1 Drop (MYDRIACYL) 1 Drop, RIGHT EYE, DIRECTED, Starting on 02/11/22 at 1530, Until 02/12/22 at 0329, Administer for dilation Given 02/11/2022 3:30 PM EST 1 Drop Additional Source Comments INFORMATION SOURCE (unrecogn ized section and content) DATE CREATED AUTHOR AUTHOR'S ORGANIZ ATION 09/25/2018 [facility] DATE CREATED AUTHOR AUTHOR'S ORGANIZ ATION 03/07/2019 [facility] DATE CREATED AUTHOR AUTHOR'S ORGANIZ ATION 07/14/2021 [facility] DATE CREATED AUTHOR AUTHOR'S ORGANIZ ATION 07/30/2021 [facility] DATE CREATED AUTHOR AUTHOR'S ORGANIZ ATION 07/30/2021 [facility] DATE CREATED AUTHOR AUTHOR'S ORGANIZ ATION 09/13/2021 [facility] DATE CREATED AUTHOR AUTHOR'S ORGANIZ ATION 02/11/2022 [facility] DATE CREATED AUTHOR AUTHOR'S ORGANIZ ATION 04/21/2022 [facility] Reason for Visit (unrecogniz ed section and content) Status Reason Specialty Diagnoses / Procedures Referred By Contact Referred To Contact Closed Specialty Services Required/Patient' s Best Interest Cardiology Diagnoses Atypical chest pain Kelsi Hernandes, DO [address] [place] [address] Gail Hanson MD [address] [place] [address] Reason Comments New Patient Thyroid nodule Specialty Diagnoses / Procedures Referred By Contac t Referred To Contact Otolaryngology Diagnoses Thyroid nodule Kindra Gill PA-C [address] [place] [address] Richard Cihnchilla MD [address] [address] Referral ID Status Reason Start Date Expiration Date V isits Requested Visits Authorized [id number] Pending Review 06/10/2021 06/10/2022 1 1 Reason Comments Blurred Vision Both Eyes Left eye worse than right eye Difficulty Reading Both Eyes Glare Halos Both Eyes Reason Comments After Cataract, Obscuring Vision Right e ye Specialty Diagnoses / Procedures Referred By Contact Referred To Contact Ophthalmology / OPHTHALMOLOGY Diagnoses Secondary cataract YAG LASER Procedures POST-CATARACT LASER SURGERY LASER Humble Gallegos MD [address] [place] [id number] Humble Gallegos MD [address] [id number] Referral ID Status Reason Start Date Expiration Date Visits Re quested Visits Authorized [id number] Closed 02/10/2022 02/05/2023 1 1 Assessment & Plan Note - Gail Hanson MD - 03/05/2019 11:37 AM EST Miscellaneous Notes (unrecog nized section and content) Associated Problem(s): Chest pain She had an isolated episode of nonexertional chest discomfort although she was under emotional stress. She has smoked for 50 years and as I explained to her that is her main risk factor. Her EKG today is also troubling and that there is ST segment depression across the precordium and inferiorly. No old ones for comparison. Given risk factors and the isolated event with abnormal EKG we will proceed with a stress nuclear perfusion study. She is already on a baby aspirin I added statin and beta-nora. If the stress study is abnormal at all we would proceed to heart catheterization. documented in this encounter <item><item><item><item> Privacy Markings (unrecogniz ed section and content) Section Author: Lela Tyson PROHIBITION ON REDISCLOSURE OF CONFIDENTIAL INFORMATION This notice accompanies a disclosure of information concerning a client made to you with the consent of such client. Section Author: Lela Tyson PROHIBITION ON REDISCLOSURE OF CONFIDENTIAL INFORMATION This notice accompanies a disclosure of information concerning a client made to you with the consent of such client. Section Author: Lela Tyson PROHIBITION ON REDISCLOSURE OF CONFIDENTIAL INFORMATION This notice accompanies a disclosure of information concerning a client made to you with the consent of such client. Section Author: Lela Tyson PROHIBITION ON REDISCLOSURE OF CONFIDENTIAL INFORMATION This notice accompanies a disclosure of information concerning a client made to you with the consent of such client. Care Teams (unrecognized sec tion and content) Clicking Machine Operator Relationship Specialty Start Date End Date Kindra Gill PA-C [address] [place] [id number] PCP - General Physician Corporate Meeting Planner 06/10/21 Edwar Mckeon III, DO Consulting Physician Vascular Surgery 03/22/17 Clicking Machine Operator Relationship Specialty Start Date End Date Delmy Rice, [address], [place] [address] PCP - General Family Medicine 12/27/21 Clicking Machine Operator Relationship Specialty Start Date End Date Delmy Rice DO [address] [place] [id number] PCP - General Family Medicine 12/27/21 Source Comments (unrecognize d section and content) In the event this informatio n is protected by the Federal Confidentiality of Alcohol and Drug Abuse Patient Records regulations: The Federal rules restrict any use of the information to criminally investigate or prosecute any alcohol or drug abuse patient.[facility] the event this information is protected by the Federal Confidentiality of Alcohol and Drug Abuse Patient Records regulations: The Federal rules restrict any use of the information to criminally investigate or prosecute any alcohol or drug abuse patient.[facility] FOR RECORDS PERTAINING TO PATIENTS WHO ARE OR HAVE BEEN ENROLLED IN A CHEMICAL DEPENDENCY/SUBSTANCEABUSE PROGRAM, SOME INFORMATION MAY BE OMITTED. This clinical summary was aggregated from multiple sources. Caution should be exercised in using it in the provision of clinical care. This summary normalizes information from multiple sources, and as a consequence, information in this document may materially change the coding, format and clinical context of patient data. In addition, data may be omitted in some cases. CLINICAL DECISIONS SHOULD BE BASED ON THE PRIMARY CLINICAL RECORDS. [facility]. provides no warranty or guarantee of the accuracy or completeness of information in this document.
== END | disposition home or self-care (01) ==
PROVIDERS: PCP Family Medicine; Visit Provider Ophthalmology
DX: R22.9 Localized swelling, mass and lump, unspecified (principal)
CPT/HCPCS: 88305

== ENCOUNTER 2023-05-26 11:39 | Emergency (ER) | payer MEDICARE, SELFPAY ==
[2023-05-26 11:40] VITALS: BP 163/97; PULSE 85; RESP 16; TEMP 35.2; O2SAT 97; BMI 19.1
[2023-05-26] MEDS: Metaxalone 800 MG Tablet PO (13:33)
[2023-05-26 13:36] VITALS: BP 117/88; PULSE 76; RESP 16; TEMP 36.8; O2SAT 97
--- NOTE | 2023-06-06 23:45 | EDS_ITS ---
HPI History of Present Illness Chief Complaint: Back Informant: patient Onset/Context/Timing Context: Gradual Onset Timing: Continuous Quality: Dull and Aching Current Severity: Mild Maximum Severity: Moderate Worsened by: improves with Movement, Bending and Lifting Relieved by: Remaining Still Associated Symptoms Associated Symptoms: Negative for Numbness, Radiation to Right Leg, Radiation to Left Leg, Fever, Dysuria, Unable to Ambulate, Unable to Transfer, Urinary Retention, Urinary Incontinence, Constipation or Fecal Incontinence Narrative Narrative: Dictation was lost to remove since being redictated on 06/06/2023 at 11:46 PM to the best my recollection and nodules patient. I do have some notes that I took a medication review. 77-year-old female history of osteoarthritis and hypothyroidism. Complaining of right upper back pain after lifting and moving things in her garage yesterday. Denies any fall injury or trauma. No prior back history of back surgery. Denies any fever. Denies any numbness or weakness. Denies any dysuria or incontinence. Prior similar symptoms: Yes Recent Illness/Hospitalization: No PFSH PFSH Medical History Cataracts COPD (chronic obstructive pulmonary disease) Hearing problem History of blood clots Seasonal allergies Thyroid disorder Thyroid nodule Tobacco use Home Medications multivitamin,[id number] (Complete Multivitamin tablet) 1 tab PO DAILY 11/12/19 [History Last Taken Unknown] prevagen PO 11/12/19 [History Last Taken Unknown] miscellaneous medical supply (Blood Pressure Cuff) #1 ea 11/29/21 [Rx Last Taken Unknown] handicap placard #1 ea 02/24/22 [Rx Last Taken Unknown] levothyroxine 50 mcg tablet (Synthroid) 50 mcg PO DAILY #90 tabs 04/20/22 [Rx Last Taken Unknown] diclofenac sodium 1 % topical gel 2 g topical ONCE #100 grams 10/18/22 [Rx Last Taken Unknown] betamethasone dipropionate 0.05 % topical cream 1 applic topical BID #15 grams 01/13/23 [Rx Last Taken Unknown] terbinafine HCl 250 mg tablet 250 mg PO DAILY #30 tabs 01/13/23 [Rx Last Taken Unknown] metaxalone 800 mg tablet 800 mg PO TID 7 days #21 tabs 05/26/23 [Rx Last Taken Unknown] Allergy/AdvReac Type Severity Reaction Status Date / Time latex Allergy Mild blisters Verified 05/26/23 11:39 Social History Smoking Status: Current some day smoker tobacco type: cigarettes alcohol intake: never substance use type: does not use what type of physical activity do you participate in: walking and other details: yard work ROS ROS ED ROS Narrative Denies recent illness. Review of Systems ROS Unobtainable: Denies due to encephalopathy Constitutional Constitutional ED: Denies chills or fever(s) Eyes Eyes: Denies blurry vision ENT ENT ED: Denies ear pain Cardiovascular Cardiovascular: Denies chest pain Respiratory/Chest Respiratory/Chest: Denies dyspnea Gastrointestinal Gastrointestinal: Denies abdominal pain, constipation, diarrhea, melena, nausea or vomiting Genitourinary Genitourinary ED: Denies dysuria or hematuria Musculoskeletal Musculoskeletal: Reports back pain; Denies arthralgias or neck pain Integumentary Denies abscess Neurologic Neurologic: Denies headache(s) Psychiatric Psychiatric: Denies anxiety or depression Endocrine Endocrinology: Denies cold intolerance Hematologic/Lymphatic Hematologic/Lymphatic: Denies easy bleeding, easy bruising or lymphadenopathy Allergic/Immunologic Allergic/Immunologic ED: Denies mouth swelling, tongue swelling or urticaria EXAM Physical Exam Narrative Exam Narrative: 77-year-old female vital signs stable afebrile. Does not look septic or toxic. No severe distress. H EENT exam unremarkable. Neck nontender no lymphadenopathy. No meningismus. Lungs clear to auscultation. Heart regular rhythm rate about 80 no murmur. Chest wall and ribs nontender. Abdomen soft nontender. Moving all 4 extremities. Nontender no edema. Normal strength. Back upper back has musculoskeletal reproducible tenderness. No signs of trauma. No bruising. No spine tenderness. No redness or warmth. Neurologically patient is awake and alert with no focal motor or sensory def icits. Const Positive well nourished and well developed; Negative for obese, cachectic, contractures or unkempt General Appearance ED: well developed and NAD; Negative for unkempt, cachectic, contractures or pallor Nutritional Appearance: Negative for cachectic or obese HEENT Reports moist mucous membranes; Denies dry mucous membranes Negative for trauma or tenderness Mouth ED: No dry mucous membranes Mouth: No dry mucous membranes Eyes PERRL and EOMs intact bilaterally General Eye ED: Negative for pale conjunctiva or scleral icterus Neck no lymphadenopathy, supple and no JVD General: Negative for tenderness Thyroid: Negative for other Chest Wall Chest: Negative for other Resp normal respiratory effort and clear to auscultation bilaterally Effort and Inspection: Negative for pain with movement Auscultation: Negative for rales, rhonchi or wheezes Cardio regular rate, regular rhythm, S1 normal heart sound, S2 normal heart sound and no murmurs Palpation: Negative for palpable S3 Rate: Negative for bradycardia or tachycardic Rhythm: Negative for abnormal rhythm Bruits: Negative for other GI normal to inspection, nondistended, normoactive bowel sounds, soft to palpation, non-tender, non-distended and no masses Inspection: Negative for abdominal distention Auscultation: Negative for hyperactive bowel sounds Palpation: Negative for tender, guarding, pulsatile mass or rebound tenderness present Back/Spine no thoracic nor lumbar tenderness; Negative for normal to inspection Back/Spine Narrative: Right upper back soft tissue, muscular reproducible tenderness consistent with myofascial strain and/or spasm. No bony deformity. No signs of trauma. No bruising. No redness or warmth. Cervical Spine: Negative for cervical spine tenderness Thoracic Spine / Upper Back: paraspinal muscle tenderness Extremity normal to inspection and no clubbing, cyanosis or edema General Extremety ED: Negative for edema or tenderness General Extremity: Negative for edema Neuro oriented x3 and no sensory deficits noted Sensorium / Orientation: Negative for alert, confused, lethargic or stuporous Motor Exam: strength 5/5 throughout Psych mental status grossly normal Appearance: Negative for unkempt Attitude: No agitated Mood & Affect: Negative for depressed, sad or tearful Skin no rashes or lesions noted and no wounds General Skin Exam: Negative for jaundice or pallor Lesions: No lesion noted Rashes: No rashes noted Trauma: Negative for abrasion or puncture MDM MDM MDM Narrative Medical decision making narrative: 77-year-old female recent lifting and moving things in her garage with upper back pain is consistent with myofascial strain and/or spasm. She does not need imaging or labs. Will be treated as back strain and spasm. Patient be given a prescription for Skelaxin. Follow-up if not improving. Return if worse. Discharge Plan Triage Chief Complaint: Back ED Provider: Zay Spears Dx/Rx/DC Orders Clinical Impression: Back strain, Back muscle spasm Instructions: ED Back Sprain/Strain Prescriptions: New metaxalone 800 mg tablet 800 mg PO TID 7 Days Qty: 21 0RF No Action multivitamin,vr-aahp-[id number] tablet 1 tab PO DAILY prevagen PO (DME) Blood Pressure Cuff Misc See Rx Instructions .Route Qty: 1 0RF Rx Instructions: Check daily (DME) handicap placard See Rx Instructions .ROUTE .MEDSUPPLY Qty: 1 0RF Rx Instructions: 5 Years duration terbinafine HCl 250 mg tablet 250 mg PO DAILY Qty: 30 6RF betamethasone dipropionate 0.05 % cream 1 applic topical BID Qty: 15 0RF levothyroxine [Synthroid] 50 mcg tablet 50 mcg PO DAILY Qty: 90 3RF diclofenac sodium 1 % gel 2 g topical ONCE Qty: 100 1RF Rx Instructions: apply to tender area on chest daily Primary Care Provider: Jae Rice Referrals: Jae Rice, DO [Primary Care Provider] - As Needed Activity Restrictions/Additional Instructions: You have strained the muscles in your upper back. They are going to spasm. Motrin and Tylenol for pain. Hot shower, warm bath, hot tub or whirlpool and massage. The muscle relaxant Skelaxin 3 times a day till gone. Follow-up with your doctor if not improving or return if worse. Disposition Disposition: Home, Self Care Discharge Date/Time: 05/26/23 13:37
== END 2023-05-26 13:37 | disposition home or self-care (01) ==
PROVIDERS: Emergency Provider Emergency Medicine; PCP Family Medicine; Visit Provider Emergency Medicine
DX: S29.012A Strain of muscle and tendon of back wall of thorax, initial encounter (principal); J44.9 Chronic obstructive pulmonary disease, unspecified; M62.830 Muscle spasm of back; X50.0XXA Overexertion from strenuous movement or load, initial encounter; Y92.59 Other trade areas as the place of occurrence of the external cause; E03.9 Hypothyroidism, unspecified; F17.210 Nicotine dependence, cigarettes, uncomplicated; Z79.890 Hormone replacement therapy; Z79.899 Other long term (current) drug therapy
CPT/HCPCS: 99282

== ENCOUNTER → 2023-07-28 | Outpatient (CLI) | payer MEDICARE, SELFPAY ==
--- NOTE | 2023-07-28 14:02 | CT_ITS ---
STUDY: CT CHEST WITH CONTRAST REASON FOR EXAM: Female, 77 years old. Left chest wall pain. No recent injury. RADIATION DOSAGE (If Supplied By Facility): CTDIvol = ( 8.91 ) mGy, DLP = ( 190.82 ) mGycm TECHNIQUE: Transaxial imaging was performed following intravenous administration of IV 100mL Isovue-300. Multiplanar coronal and sagittal images were reformatted. Individualized dose optimization techniques were used for this CT. COMPARISON: No relevant priors. FINDINGS: CHEST Heterogeneous enlargement of the left lobe of the thyroid gland and isthmus with substernal extension. Correlation with ultrasound recommended for further evaluation. Hyperinflation. Emphysematous changes worse in the upper lobes with multiple bleb formation. There is an 8.3 mm calcified granuloma in the posterior medial segment of the right lower lobe. There is no demonstrated pleural abnormality. There are calcifications of the coronary arteries. Normal mediastinum. Normal hilar regions. Normal unenhanced pulmonary arteries. There is atherosclerotic calcification of the aortic arch. There are multi-level degenerative changes of the thoracic spine. There is no demonstrated abnormality of the visualized upper abdomen. CT/Chest WITH Contrast IMPRESSION: Heterogeneous enlargement of the isthmus and the left lobe of the thyroid gland with evidence of substernal extension. Correlation with ultrasound recommended. Hyperinflation and emphysematous changes. Calcified granuloma in the right lower lobe. Electronically Signed: Gregg Godwin MD at 14:43 EDT ,
[2023-07-28 14:26] LABS: CREATININE FINGERSTICK < 1.0 mg/dL (0.55-1.02)
== END | disposition home or self-care (01) ==
PROVIDERS: PCP Family Medicine; Referring Provider Nurse Practitioner; Visit Provider Nurse Practitioner
DX: R07.89 Other chest pain (principal)
CPT/HCPCS: 71260; Q9967

== ENCOUNTER → 2023-07-28 | Outpatient (CLI) | payer MEDICARE, SELFPAY ==
[2023-07-28 12:17] LABS: Absolute Lymphocyte Count 2.05 X10^3/uL (0.83-4.51); Absolute Neutrophil Count 5.3 X10^3/uL (2.0-7.7); Basophil# 0.11 X10^3/uL; Basophil% 1.3 % (0-1); Eosinophil# 0.11 X10^3/uL; Eosinophils% 1.3 % (0-5); Hematocrit 49.8 % (37-47); Hemoglobin 15.8 g/dL (12.0-15.0); Lymphocyte # 2.05 X10^3/ul (0.83-4.51); Lymphocyte % 24.8 % (19-41); Mean Corp Hgb Conc 31.7 g/dL (32-36); Mean Corpuscular Hgb 28.9 pg (27.0-32.0); Mean Corpuscular Volume 91.2 fL (81-99); Mean Platelet Vol. 11.4 fl (6.2-12.0); Monocyte# 0.62 X10^3/uL; Monocyte% 7.5 % (0-10); NRBC Flagged by Analyzer 0 % (0-5); Neutrophil # 5.33 X10^3/uL (2.7-7.7); Neutrophil % 64.7 % (47-70); POSITIVE COUNT YES; RBC Distribution Width CV 12.6 % (11.6-14.6); RBC Distribution Width SD 41.8 fl (35.1-43.9); Red Blood Count 5.46 M/mm3 (4.2-5.4); White Blood Count 8.3 K/mm3 (4.4-11.0)
[2023-07-28 12:59] LABS: Differential Indicated SCAN CRITERIA MET; Platelet Estimate ADEQUATE (ADEQ)
[2023-07-28 15:33] LABS: Vitamin B12 303 pg/mL (211-911)
[2023-07-28 15:42] LABS: ALB/GLOB Ratio 1.1 RATIO (0.9-2.4); AST(SGOT) 36 U/L (15-37); Alanine Aminotransfer ALT/SGPT 23 U/L (13-56); Alkaline Phosphatase 94 U/L (45-117); Anion Gap 6 (5-15); BUN 11 mg/dL (7-18); BUN/Creat Ratio 16.3 RATIO (10-20); Calcium,Total 9.4 mg/dL (8.5-10.1); Chloride 106 mmol/L (98-107); Creatinine, Serum 0.67 mg/dL (0.55-1.02); EST Glomerular Filtration Rate 90 mL/min (>60); Est Glom Filt Rate - Afr Amer 109 mL/min (>60); Globulin 3.8 g/dL (2.2-4.2); Glucose 121 mg/dL (74-106); Protein, Total 7.8 g/dL (6.4-8.2); Sodium Level 138 mmol/L (136-145); Thyroid Stim Hormone (TSH) 1.23 uIU/mL (0.358-3.74)
== END | disposition home or self-care (01) ==
LOC: BIMLAB 11:11
PROVIDERS: Nurse Practitioner; PCP Family Medicine; Referring Provider Family Medicine; Visit Provider Family Medicine
DX: R07.89 Other chest pain (principal); R41.3 Other amnesia
CPT/HCPCS: 36415; 80053; 82607; 84443; 85025

== ENCOUNTER → 2023-08-18 | Outpatient (CLI) | payer MEDICARE, SELFPAY ==
--- NOTE | 2023-08-18 13:58 | US_ITS ---
STUDY: THYROID ULTRASOUND REASON FOR EXAM: Female, 77 years old. enlarged isthmus and left lobe of thyroid on CT TECHNIQUE: Ultrasound evaluation of the thyroid was performed with real-time and static soliz-scale imaging. COMPARISON: 01/31/2017 FINDINGS: RIGHT LOBE: The right lobe of the thyroid gland measures 5.4 x 1.0 x 1.3 cm. There is a heterogeneous echotexture. Multiple subcentimeter hypoechoic and isoechoic nodules consistent with adenomas. LEFT LOBE: The left lobe of the thyroid gland measures 6.6 x 2.7 x 2.8 cm. There is a heterogeneous echotexture. The entire left lobe is dominated by a large heterogeneous isoechoic nodule which is unchanged. ISTHMUS: The isthmus measures 17 mm thick. There is no change in the 28 x 20 x 34 mm heterogeneous isoechoic nodule within the isthmus.. The regional lymph nodes are normal. US/Thyroid IMPRESSION: No change in multinodular goiter. Electronically Signed: Brandyn Mason MD at 18:52 EDT ,
--- NOTE | 2023-08-18 14:22 | CT_ITS ---
STUDY: CT BRAIN WITHOUT CONTRAST REASON FOR EXAM: Female, 77 years old. Memory deficit RADIATION DOSAGE (If Supplied By Facility): CTDIvol = ( 44.99 ) mGy, DLP = ( 762.36 ) mGycm TECHNIQUE: Transaxial CT imaging of the brain was performed without administration of intravenous contrast material. Individualized dose optimization techniques were used for this CT. COMPARISON: Comparison is made with prior study dated September 05, 2020. FINDINGS: Normal soft tissue structures. Normal calvarium. There is mild cerebral atrophy with widening of the extra-axial spaces and ventricular dilatation. There are areas of decreased attenuation within the white matter tracts of the supratentorial brain, consistent with microvascular disease changes. Normal basal ganglia and thalami. Normal brainstem. Normal cerebellum. There is no intracranial hemorrhage. There are no findings of an acute ischemic infarction. Normal visualized paranasal sinuses. CT/Brain/Head without Contrast IMPRESSION: Chronic involutional changes of the brain. Electronically Signed: Gregg Godwin MD at 14:49 EDT ,
== END | disposition home or self-care (01) ==
PROVIDERS: PCP Family Medicine; Referring Provider Nurse Practitioner; Visit Provider Nurse Practitioner
DX: R41.3 Other amnesia (principal); E04.9 Nontoxic goiter, unspecified
CPT/HCPCS: 70450; 76536

== ENCOUNTER → 2023-09-25 | Outpatient (CLI) | payer MEDICARE, SELFPAY ==
--- NOTE | 2023-09-25 09:09 | BI_ITS ---
MAMMOGRAPHY - BILATERAL DIAGNOSTIC REASON FOR EXAM: Female, 78 years old. 8 month history of left inferior breast pain. No known trauma. PERTINENT HISTORY: Non-contributory. TECHNIQUE: Digital bilateral breast lenin (3D mammographic acquisition) in the CC and MLO projections. 2-D mediolateral oblique (MLO) and craniocaudad (CC) views of both breasts were obtained. CAD: Full Field Digital Mammography with Computer Added Detection was performed. COMPARISON: Comparison is made with prior outside examination dated August 20, 2019. FINDINGS: Breast Composition: The breasts are heterogeneously dense, which may obscure small masses. There are no dominant masses or suspicious calcifications. No other significant abnormalities are identified. There has been no significant change since the prior study. BI/DIAG MAMM W/CAD, BILAT IMPRESSION: Stable bilateral diagnostic mammogram. With the patient''s history of pain in the inferior aspect of the left breast, correlation with ultrasound is recommended. ASSESSMENT CATEGORY: BIRADS Category 0: Incomplete. Need additional imaging evaluation. A letter regarding these results will be sent to the patient by the facility within 30 days. Approximately 10% of breast cancers are not detected by mammography. A normal mammogram should not delay biopsy of a clinically suspicious abnormality. Electronically Signed: Gregg Godwin MD at 10:16 EDT ,
--- NOTE | 2023-09-25 09:09 | US_ITS ---
STUDY: ULTRASOUND BREAST - LEFT REASON FOR EXAM: Female, 78 years old. Inferior breast pain. TECHNIQUE: Axial and longitudinal images of the LEFT breast were performed with a high resolution ultrasound transducer. # OF IMAGES: 14 COMPARISON: Comparison is made with prior mammogram done earlier in the day. FINDINGS: LEFT Breast: The inferior medial aspect of the left breast was examined by ultrasound. No sonographic abnormality is seen. US/Breast Limited Unilateral IMPRESSION: No sonographic abnormality is seen. ASSESSMENT CATEGORY: BIRADS Category 1: Negative. A letter regarding these results will be sent to the patient by the facility within 30 days. Electronically Signed: Gregg Godwin MD at 11:19 EDT ,
== END | disposition home or self-care (01) ==
LOC: OPBI 09:09
PROVIDERS: PCP Family Medicine; Referring Provider Nurse Practitioner; Visit Provider Nurse Practitioner
DX: N64.4 Mastodynia (principal)
CPT/HCPCS: 76642; 77062; 77066; G0279

== ENCOUNTER → 2023-10-24 | Outpatient (CLI) | payer MEDICARE, SELFPAY ==
--- NOTE | 2023-10-24 11:20 | RAD_ITS ---
STUDY: X-RAY - BILATERAL RIBS WITH CHEST REASON FOR EXAM: Female, 78 years old. Rib pain. Pain in left upper quadrant for 2 months. No known injury. TECHNIQUE - RIBS: 4 oblique views of the ribs. TECHNIQUE - CHEST: 2 frontal views of the chest. COMPARISON: None. FINDINGS - RIBS : Normal visualized bilateral ribs without a demonstrated fracture. FINDINGS - CHEST: The lungs are clear and expanded. There is no demonstrated pleural abnormality. Normal size heart. Normal mediastinum and oscar. Normal visualized pulmonary arteries. There is atherosclerotic calcification of the aortic arch. Normal visualized thoracic spine. Normal visualized ribs, clavicles, and shoulders. There is no demonstrated abnormality of the visualized soft tissue structures of the upper abdomen. RAD/Ribs Grant Min 4V w/PA Chest IMPRESSION: RIBS: Normal x-ray examination of the bilateral ribs. CHEST: Atherosclerotic calcification of the aortic arch. Electronically Signed: Alon Rodarte MD at 15:53 EDT ,
== END | disposition home or self-care (01) ==
LOC: RAD 11:05
PROVIDERS: PCP Family Medicine; Referring Provider Family Medicine; Visit Provider Family Medicine
DX: R07.89 Other chest pain (principal)
CPT/HCPCS: 71111

== ENCOUNTER → 2023-11-22 | Outpatient (CLI) | payer MEDICARE, SELFPAY ==
[2023-11-22 15:52] LABS: Thyroid Stim Hormone (TSH) 0.245 uIU/mL (0.358-3.740)
== END | disposition home or self-care (01) ==
LOC: BIMLAB 13:49
PROVIDERS: PCP Family Medicine; Referring Provider Physician Assistant; Visit Provider Physician Assistant
DX: E03.9 Hypothyroidism, unspecified (principal)
CPT/HCPCS: 36415; 84443

== ENCOUNTER → 2024-03-22 | Outpatient (CLI) | payer MEDICARE, SELFPAY | END | disposition home or self-care (01) | LOC: LABSPEC 12:03 | PROVIDERS: PCP Family Medicine; Referring Provider Physician Assistant; Visit Provider Physician Assistant | DX: J06.9 Acute upper respiratory infection, unspecified (principal) | CPT/HCPCS: 87631 ==

== ENCOUNTER → 2024-05-07 | Outpatient (CLI) | payer MEDICARE, SELFPAY ==
--- NOTE | 2024-05-07 11:45 | RAD_ITS ---
EXAM: XR Chest, 2 Views CLINICAL INDICATION: COUGH TECHNIQUE: Frontal and lateral views of the chest. COMPARISON: No relevant prior studies available. FINDINGS: LUNGS AND PLEURAL SPACES: Hyperlucent lungs. Flattening of the diaphragm. No consolidation. No pneumothorax. HEART: Unremarkable. No cardiomegaly. MEDIASTINUM: Unremarkable. Normal mediastinal contour. BONES/JOINTS: Unremarkable. No acute fracture. RAD/Chest PA and Lateral IMPRESSION: Suggestion of COPD. Reading Location: [facility]
== END | disposition home or self-care (01) ==
PROVIDERS: PCP Family Medicine; Referring Provider Physician Assistant; Visit Provider Physician Assistant
DX: R05.9 Cough, unspecified (principal)
CPT/HCPCS: 71046

== ENCOUNTER → 2024-05-10 | Outpatient (CLI) | payer MEDICARE, SELFPAY ==
--- NOTE | 2024-05-10 09:34 | NM_ITS ---
PROCEDURE: BONE SCAN LIMITED AREA 05/10/2024 REASON FOR EXAM: CHEST WALL PAIN. Bilateral chest wall pain. Garage door fell on patient. Initial encounter TECHNIQUE: Delayed phase imaging of the entire body after radiopharmaceutical administration 25.9 mCi technetium 99 m medronate in the right antecubital fossa. RADIOPHARMACEUTICAL: 25.9 mCi Technetium-99 m MDP IV COMPARISON: CORRELATION WITH EXISTING RELEVANT IMAGING STUDIES (i.e. x-ray, MRI, CT, etc.): No existing relevant imaging study available , patient did not have a previous relevant imaging study. FINDINGS: Delayed: There is no suspicious uptake in the axial and appendicular skeleton. There is excretion by the kidneys with activity seen in the urinary bladder. Mild uptake bilateral shoulders and right knee likely due to arthritis. NM/Bone Scan Limited Area IMPRESSION: Negative exam for detection of fractures Reading [facility]
== END | disposition home or self-care (01) ==
LOC: NM 09:31
PROVIDERS: PCP Family Medicine; Referring Provider Family Medicine; Visit Provider Family Medicine
DX: R07.89 Other chest pain (principal)
CPT/HCPCS: 78300; A9503

== ENCOUNTER → 2024-08-22 | Outpatient (CLI) | payer MEDICARE, SELFPAY ==
--- NOTE | 2024-08-22 12:43 | RAD_ITS ---
PROCEDURE: FOOT MIN 3 VIEWS 08/22/2024 REASON FOR EXAM: MULTIPLE TOE INJURY History of trauma. TECHNIQUE: FOOT MIN 3 VIEWS. Left foot COMPARISON: None FINDINGS: Bones: Calcaneal spurs. No fracture is seen. Joints: Marked degree of osteoarthritis and joint space narrowing of the 1st metatarsophalangeal joint. Soft tissues: Soft tissue swelling. Other: RAD/Foot min 3 Views IMPRESSION: No evidence of fracture. Degenerative changes at the 1st metatarsophalangeal joint. Calcaneal spurs. Reading Location: [place] [id number]
== END | disposition home or self-care (01) ==
LOC: MTRAD 12:38
PROVIDERS: PCP Family Medicine; Referring Provider Physician Assistant Surgical; Visit Provider Physician Assistant Surgical
DX: S99.922A Unspecified injury of left foot, initial encounter (principal); X58.XXXA Exposure to other specified factors, initial encounter
CPT/HCPCS: 73630